=== PATIENT | female | born 1945 | race Caucasian/White ===

== ENCOUNTER 2018-10-03 09:31 | Inpatient (IN) | payer OTHER ==
[~2018-10-03] VITALS: Ht 162.6 cm; Wt 72.5 kg
[~2018-10-03 09:31] MED LIST: BACL10TA; CEPH500C; FENO1TAB PO; GABA300C10 PO; GEMF600T7 PO; IRBE300T18; METO-159; PAR20T; RIVA10TA PO
[2018-10-03 10:24] LABS: Eosinophils # (auto) 0.1 uL; Lymphocytes # (auto) 1.2 uL; Monocytes # (auto) 0.3 uL; Red Cell Distribution Width 18.7 % (11.8-14.3)
[2018-10-03 10:26] LABS: Basophils # (auto) 0.1 uL; Basophils % (auto) 0.8 % (0.0-2.0); Eosinophils % (auto) 1.7 % (0.0-7.0); Hematocrit 35.2 % (36.0-46.0); Lymphocytes % (auto) 13.5 % (10.0-50.0); Mean Corpuscular Hemoglobin 26.4 pg (28.0-32.0); Mean Corpuscular Hgb Conc. 31.2 g/dL (32.0-36.0); Mean Corpuscular Volume 84.4 fL (80.0-100.0); Monocytes % (auto) 3.2 % (0.0-12.0); Neutrophils % (auto) 80.8 % (37.0-80.0); Platelet Count (auto) 203 10^3/uL (140-450); Red Blood Cells 4.17 10^6/uL (4.0-5.20); White Blood Cell 8.7 10^3/uL (4.4-10.8)
[2018-10-03 10:48] LABS: Calcium 9.7 mg/dL (8.5-10.1); Chloride 100 mmol/L (98-107); Sodium 135 mmol/L (136-145)
[2018-10-03 10:56] LABS: Urine WBC None Seen /hpf (0 - 5)
[2018-10-03 10:57] LABS: Alanine Aminotransferase 16 U/L (13-56); Albumin 3.3 g/dL (3.4-5.0); Alkaline Phosphatase 64 U/L (45-117); Anion Gap 9 (5-15); Aspartate Aminotransferase 16 U/L (15-37); BUN/Creatinine Ratio 42.5; Bilirubin, Total 0.3 mg/dL (0.2-1.0); Blood Alcohol < 3.0 mg/dL (0-5); Blood Urea Nitrogen 62 mg/dL (7-18); Carbon Dioxide 26 mmol/L (21-32); GFR African American 45 mL/min; GFR Non-African American 38 mL/min; Glucose 110 mg/dL (74-106); Total Protein 9.8 g/dL (6.4-8.2)
[2018-10-03 11:03] LABS: Potassium 5.7 mmol/L (3.5-5.1)
[2018-10-03 11:16] LABS: Urine Bacteria FEW /hpf (None Seen); Urine Blood Negative /uL (Negative); Urine Hyaline Cast MOD /lpf (0 - 2); Urine Mucus FEW (None Seen); Urine Specific Gravity 1.018 (1.001-1.035)
[2018-10-03 11:21] LABS: Alcohol, Urine < 3.0 mg/dL (0-5); Amphetamine Screen, Urine NEGATIVE (NEGATIVE); Benzodiazephine Screen, Urine NEGATIVE (NEGATIVE); Cannabinoid Screen, Urine NEGATIVE (NEGATIVE); Cocaine Screen, Urine NEGATIVE (NEGATIVE); Opiate Scree,Urine POSITIVE (NEGATIVE); Phencyclidine Screen, Urine NEGATIVE (NEGATIVE)
[2018-10-03 11:28] LABS: Barbiturate Scree,Urine NEGATIVE (NEGATIVE)
[2018-10-03] MEDS ORDERED: FUROSEMIDE 40 MG/4 ML VIAL IV ONE ×2 (12:30→13:45)
[2018-10-03] MEDS ORDERED: SODIUM CHLORIDE 0.9% 1,000 ML IV SCH (13:42)
[2018-10-03] MEDS ORDERED: ACETAMINOPHEN 500 MG TAB PO PRN (13:45)
[2018-10-03] MEDS ORDERED: LACTULOSE 20Gm/30ML SOLN PO PRN (13:45)
[2018-10-03] MEDS ORDERED: SODIUM POLYSTYRENE SULF 15 GM POWDER PO ONE (13:45)
[2018-10-03] MEDS ORDERED: LABETALOL HCL 5 MG/ML ML 20ML VIAL IV PRN (13:45)
[2018-10-03] MEDS ORDERED: SODIUM CHLORIDE 0.9% 2,000 ML IV ONE (13:45)
[2018-10-03] MEDS ORDERED: DEXTROSE (50%) 50ML SYRG IV PRN (13:45)
[2018-10-03] MEDS ORDERED: PROMETHAZINE HCL 25 MG/ML 1ML IV PRN (13:45)
[2018-10-03] MEDS ORDERED: NITROGLYCERIN 0.4 MG SL TAB SL PRN (13:45)
[2018-10-03] MEDS ORDERED: MORPHINE SULFATE 4 MG/ML SYR/VIAL IV PRN ×2 (13:45)
[2018-10-03] MEDS ORDERED: LEVOFLOXACIN 500MG 100 ML IV ONE (14:00)
[2018-10-03] MEDS ORDERED: PATIENTS OWN MEDICATION (Gabapentin 300 MG) PO SCH (14:00)
[2018-10-03] MEDS: GABAPENTIN 300 MG CAP PO SCH (16:00)
[2018-10-03] MEDS: CLINDAMYCIN 600MG IV 50 ML IV SCH ×2 (16:00→23:53)
[2018-10-03] MEDS: SODIUM CHLORIDE 0.9% 1,000 ML IV SCH (16:30)
[2018-10-03] MEDS: InsuLIN REG 1unit/0.01ml Soln (100units/ml) SC SCH ×2 (17:00→22:00)
[2018-10-03] MEDS: ACCU-CHEK COMFORT CURVE STRIP VI SCH ×2 (17:11→22:22)
[2018-10-03 23:00] VITALS: BP 157/81
[2018-10-04] MEDS: GABAPENTIN 300 MG CAP PO SCH ×4 (00:10→20:40)
[2018-10-04] MEDS: SODIUM CHLORIDE 0.9% 1,000 ML IV SCH ×3 (01:55→20:40)
[2018-10-04 02:41] LABS: BUN/Creatinine Ratio 55.4; Calcium 8.8 mg/dL (8.5-10.1); Potassium 3.8 mmol/L (3.5-5.1)
[2018-10-04] MEDS: LORazepam 0.5 MG TAB PO PRN ×2 (02:58→23:49)
[2018-10-04 05:00] VITALS: BP 145/68
[2018-10-04] MEDS: CLINDAMYCIN 600MG IV 50 ML IV SCH ×3 (06:07→20:40)
[2018-10-04] MEDS: ACCU-CHEK COMFORT CURVE STRIP VI SCH ×4 (06:07→20:55)
[2018-10-04] MEDS: InsuLIN REG 1unit/0.01ml Soln (100units/ml) SC SCH ×4 (06:07→20:55)
[2018-10-04] MEDS: BACLOFEN 10 MG TAB PO PRN ×2 (06:51→20:41)
[2018-10-04 08:00] VITALS: BP 125/55
[2018-10-04] MEDS: ASPirin 81 mg TAB PO SCH ×2 (10:00→10:08)
[2018-10-04] MEDS: LEVOFLOXACIN 500MG 100 ML IV SCH (10:07)
[2018-10-04] MEDS: PARoxetine 20 MG TAB PO SCH (10:08)
[2018-10-04] MEDS: PANTOPRAZOLE 40 MG TAB PO SCH (10:08)
[2018-10-04] MEDS: GEMFIBROZIL 600 MG TAB PO SCH (10:08)
[2018-10-04] MEDS: RIVAROXABAN 10 MG TAB PO SCH (10:09)
[2018-10-04 13:00] VITALS: BP 134/67
[2018-10-04 17:00] VITALS: BP 135/75
[2018-10-04] MEDS: HYDROcodone-ACET 5/325MG TAB PO PRN (20:41)
[2018-10-04 22:00] VITALS: BP 146/79
[2018-10-05] MEDS: HYDROcodone-ACET 5/325MG TAB PO PRN ×2 (04:37→19:54)
[2018-10-05 05:10] VITALS: BP 140/74
[2018-10-05] MEDS: InsuLIN REG 1unit/0.01ml Soln (100units/ml) SC SCH ×4 (06:24→21:59)
[2018-10-05] MEDS: GABAPENTIN 300 MG CAP PO SCH ×3 (06:24→21:58)
[2018-10-05] MEDS: CLINDAMYCIN 600MG IV 50 ML IV SCH ×3 (06:24→21:58)
[2018-10-05] MEDS: ACCU-CHEK COMFORT CURVE STRIP VI SCH ×4 (06:25→21:59)
[2018-10-05] MEDS: BACLOFEN 10 MG TAB PO PRN ×2 (06:25→19:54)
[2018-10-05 06:53] LABS: Basophils # (auto) 0 uL; Basophils % (auto) 0.7 % (0.0-2.0); Eosinophils # (auto) 0.2 uL; Eosinophils % (auto) 3.7 % (0.0-7.0); Hematocrit 28.3 % (36.0-46.0); Hemoglobin 9.2 g/dL (12.2-16.2); Lymphocytes # (auto) 0.9 uL; Lymphocytes % (auto) 18.7 % (10.0-50.0); Mean Corpuscular Hemoglobin 27.1 pg (28.0-32.0); Mean Corpuscular Hgb Conc. 32.5 g/dL (32.0-36.0); Mean Corpuscular Volume 83.5 fL (80.0-100.0); Monocytes # (auto) 0.4 uL; Monocytes % (auto) 7.6 % (0.0-12.0); Neutrophils # (auto) 3.5 uL; Neutrophils % (auto) 69.3 % (37.0-80.0); Nucleated Red Blood Cells % 0.1 %; Platelet Count (auto) 171 10^3/uL (140-450); Red Blood Cells 3.39 10^6/uL (4.0-5.20); Red Cell Distribution Width 18.6 % (11.8-14.3)
[2018-10-05 07:18] LABS: Calcium 8.1 mg/dL (8.5-10.1); Magnesium 2.2 mg/dL (1.6-2.6); Potassium 3.1 mmol/L (3.5-5.1)
[2018-10-05 09:00] VITALS: BP 115/68
[2018-10-05] MEDS: ASPirin 81 mg TAB PO SCH (10:00)
[2018-10-05] MEDS: GEMFIBROZIL 600 MG TAB PO SCH (11:11)
[2018-10-05] MEDS: SODIUM CHLORIDE 0.9% 1,000 ML IV SCH ×2 (11:11→16:14)
[2018-10-05] MEDS: LEVOFLOXACIN 500MG 100 ML IV SCH (11:11)
[2018-10-05] MEDS: PARoxetine 20 MG TAB PO SCH (11:12)
[2018-10-05] MEDS: RIVAROXABAN 10 MG TAB PO SCH (11:13)
[2018-10-05] MEDS: PANTOPRAZOLE 40 MG TAB PO SCH (11:13)
[2018-10-05 13:00] VITALS: BP 139/75
[2018-10-05 16:34] VITALS: BP 124/62
[2018-10-05] MEDS ORDERED: POTASSIUM CHL 20 Meq TABLET PO ONE (17:15)
[2018-10-05] MEDS: Pro-Stat SF 30ml Vanilla PO SCH (18:05)
[2018-10-05] MEDS: ASCORBIC ACID 500 MG TAB PO SCH (21:59)
[2018-10-05 22:00] VITALS: BP 146/80
[2018-10-05] MEDS: TEMAZEPAM 15 MG CAP PO PRN (22:00)
[2018-10-06] MEDS: SODIUM CHLORIDE 0.9% 1,000 ML IV SCH ×2 (04:00→14:00)
[2018-10-06 05:00] VITALS: BP 128/69
[2018-10-06 05:58] LABS: Basophils # (auto) 0 uL; Eosinophils # (auto) 0.3 uL; Hemoglobin 9.2 g/dL (12.2-16.2); Mean Corpuscular Hgb Conc. 32.2 g/dL (32.0-36.0); Monocytes # (auto) 0.4 uL
[2018-10-06 06:01] LABS: Basophils % (auto) 0.6 % (0.0-2.0); Hematocrit 28.7 % (36.0-46.0); Lymphocytes % (auto) 19.5 % (10.0-50.0); Mean Corpuscular Hemoglobin 26.7 pg (28.0-32.0); Monocytes % (auto) 8.1 % (0.0-12.0); Neutrophils # (auto) 3.5 uL; Neutrophils % (auto) 66.8 % (37.0-80.0); Platelet Count (auto) 171 10^3/uL (140-450); Red Blood Cells 3.46 10^6/uL (4.0-5.20); Red Cell Distribution Width 18.3 % (11.8-14.3); White Blood Cell 5.3 10^3/uL (4.4-10.8)
[2018-10-06] MEDS: CLINDAMYCIN 600MG IV 50 ML IV SCH ×3 (06:02→22:58)
[2018-10-06] MEDS: TEMAZEPAM 15 MG CAP PO PRN ×2 (06:03→23:00)
[2018-10-06] MEDS: GABAPENTIN 300 MG CAP PO SCH ×3 (06:03→22:59)
[2018-10-06] MEDS: BACLOFEN 10 MG TAB PO PRN (06:03)
[2018-10-06 06:08] LABS: Potassium 3.8 mmol/L (3.5-5.1)
[2018-10-06 06:14] LABS: BUN/Creatinine Ratio 47.9; Calcium 8.6 mg/dL (8.5-10.1); Magnesium 2.2 mg/dL (1.6-2.6); Phosphorus 2.9 mg/dL (2.5-4.90)
[2018-10-06] MEDS: InsuLIN REG 1unit/0.01ml Soln (100units/ml) SC SCH ×4 (06:29→22:00)
[2018-10-06] MEDS: ACCU-CHEK COMFORT CURVE STRIP VI SCH ×4 (06:30→22:59)
[2018-10-06] MEDS: Pro-Stat SF 30ml Vanilla PO SCH ×2 (08:00→18:00)
[2018-10-06 09:04] VITALS: BP 122/64
[2018-10-06] MEDS: LEVOFLOXACIN 500MG 100 ML IV SCH (10:00)
[2018-10-06] MEDS: PARoxetine 20 MG TAB PO SCH (10:46)
[2018-10-06] MEDS: MULTIPLE VITAMINS W/ MINERALS TAB PO SCH (10:46)
[2018-10-06] MEDS: ASCORBIC ACID 500 MG TAB PO SCH ×2 (10:47→22:59)
[2018-10-06] MEDS: ASPirin 81 mg TAB PO SCH (10:47)
[2018-10-06] MEDS: GEMFIBROZIL 600 MG TAB PO SCH (10:47)
[2018-10-06] MEDS: RIVAROXABAN 10 MG TAB PO SCH (10:48)
[2018-10-06] MEDS: PANTOPRAZOLE 40 MG TAB PO SCH (10:48)
[2018-10-06 12:44] VITALS: BP 140/75
[2018-10-06 16:44] VITALS: BP 132/70
[2018-10-06 20:00] VITALS: BP 147/75
[2018-10-06] MEDS: HYDROcodone-ACET 5/325MG TAB PO PRN (20:48)
[2018-10-06 21:55] VITALS: BP 147/75
[2018-10-07 05:30] VITALS: BP 131/68
[2018-10-07] MEDS: GABAPENTIN 300 MG CAP PO SCH ×3 (05:46→22:47)
[2018-10-07] MEDS: CLINDAMYCIN 600MG IV 50 ML IV SCH (05:46)
[2018-10-07] MEDS: ACCU-CHEK COMFORT CURVE STRIP VI SCH ×4 (06:29→22:00)
[2018-10-07] MEDS: InsuLIN REG 1unit/0.01ml Soln (100units/ml) SC SCH ×4 (06:29→22:00)
[2018-10-07] MEDS: Pro-Stat SF 30ml Vanilla PO SCH ×2 (08:00→18:00)
[2018-10-07 08:30] VITALS: BP 133/67
[2018-10-07] MEDS: GEMFIBROZIL 600 MG TAB PO SCH (10:00)
[2018-10-07] MEDS ORDERED: METOPROLOL TARTRATE 50 MG TAB PO SCH (10:00)
[2018-10-07] MEDS: LEVOFLOXACIN 500MG 100 ML IV SCH (10:00)
[2018-10-07] MEDS: ASPirin 81 mg TAB PO SCH (10:00)
[2018-10-07] MEDS: SODIUM CHLORIDE 0.9% 1,000 ML IV SCH ×3 (10:00→20:00)
[2018-10-07] MEDS: RIVAROXABAN 10 MG TAB PO SCH (10:42)
[2018-10-07] MEDS: METOPROLOL SUCCINATE XL 50 MG TAB PO SCH (10:43)
[2018-10-07] MEDS: MULTIPLE VITAMINS W/ MINERALS TAB PO SCH (10:44)
[2018-10-07] MEDS: PARoxetine 20 MG TAB PO SCH (10:44)
[2018-10-07] MEDS: PANTOPRAZOLE 40 MG TAB PO SCH (10:44)
[2018-10-07] MEDS: ASCORBIC ACID 500 MG TAB PO SCH ×2 (10:44→22:48)
[2018-10-07] MEDS: CEFTRIAXONE SODIUM 2 GM in D5W 5% 50 ML IV SCH (11:30)
[2018-10-07] MEDS: AMPICILLIN INJ 500 MG in SODIUM CHL 0.9% 50 ML IV SCH ×2 (12:00→18:00)
[2018-10-07 12:25] LABS: INR 1.23 (0.9-1.15)
[2018-10-07 12:32] VITALS: BP 139/71
[2018-10-07 17:00] VITALS: BP 153/74
[2018-10-07 20:00] VITALS: BP 164/97
[2018-10-07 22:00] VITALS: BP 164/97
[2018-10-07] MEDS: TEMAZEPAM 15 MG CAP PO PRN (22:51)
[2018-10-08 05:27] VITALS: BP 145/72
[2018-10-08 05:37] LABS: Basophils # (auto) 0 uL; Basophils % (auto) 0.5 % (0.0-2.0); Eosinophils # (auto) 0.2 uL; Lymphocytes # (auto) 1.2 uL; Mean Corpuscular Hgb Conc. 32.1 g/dL (32.0-36.0)
[2018-10-08 05:39] LABS: Eosinophils % (auto) 3.9 % (0.0-7.0); Hematocrit 30.2 % (36.0-46.0); Hemoglobin 9.7 g/dL (12.2-16.2); Lymphocytes % (auto) 19.7 % (10.0-50.0); Mean Corpuscular Hemoglobin 26.4 pg (28.0-32.0); Mean Corpuscular Volume 82.3 fL (80.0-100.0); Monocytes # (auto) 0.6 uL; Monocytes % (auto) 9.4 % (0.0-12.0); Neutrophils % (auto) 66.5 % (37.0-80.0); Nucleated Red Blood Cells % 0.1 %; Platelet Count (auto) 165 10^3/uL (140-450); Red Blood Cells 3.67 10^6/uL (4.0-5.20); Red Cell Distribution Width 18.3 % (11.8-14.3); White Blood Cell 6.1 10^3/uL (4.4-10.8)
[2018-10-08] MEDS: AMPICILLIN INJ 500 MG in SODIUM CHL 0.9% 50 ML IV SCH ×6 (06:00→23:23)
[2018-10-08] MEDS: HYDROcodone-ACET 5/325MG TAB PO PRN ×3 (06:00→21:24)
[2018-10-08] MEDS: SODIUM CHLORIDE 0.9% 1,000 ML IV SCH ×2 (06:00→16:18)
[2018-10-08] MEDS: GABAPENTIN 300 MG CAP PO SCH ×3 (06:00→21:22)
[2018-10-08 06:03] LABS: Chloride 108 mmol/L (98-107); Sodium 141 mmol/L (136-145)
[2018-10-08 06:08] LABS: Anion Gap 9 (5-15); BUN/Creatinine Ratio 31.9; Blood Urea Nitrogen 15 mg/dL (7-18); Calcium 8.7 mg/dL (8.5-10.1); Carbon Dioxide 24 mmol/L (21-32); GFR African American 168 mL/min; GFR Non-African American 139 mL/min; Glucose 101 mg/dL (74-106); Magnesium 1.8 mg/dL (1.6-2.6)
[2018-10-08] MEDS: InsuLIN REG 1unit/0.01ml Soln (100units/ml) SC SCH ×4 (07:00→21:22)
[2018-10-08] MEDS: ACCU-CHEK COMFORT CURVE STRIP VI SCH ×4 (07:00→21:22)
[2018-10-08] MEDS: Pro-Stat SF 30ml Vanilla PO SCH ×2 (08:00→18:00)
[2018-10-08 08:39] VITALS: BP 159/77
[2018-10-08] MEDS ORDERED: ceFAZolin 1GM/50ML 50 ML IV ONE (09:53)
[2018-10-08] MEDS: CEFTRIAXONE SODIUM 2 GM in D5W 5% 50 ML IV SCH (10:00)
[2018-10-08] MEDS: GEMFIBROZIL 600 MG TAB PO SCH (10:00)
[2018-10-08] MEDS: ASCORBIC ACID 500 MG TAB PO SCH ×2 (10:00→21:22)
[2018-10-08] MEDS ORDERED: ceFAZolin 1GM VL ONE (10:56)
[2018-10-08] MEDS ORDERED: BUPIVACAINE 0.75% INJ 10ML MPV SDV IJ ONE (11:35)
[2018-10-08] MEDS ORDERED: MIDAZOLAM HCL 1MG/1ML-2 ML VIAL ONE (11:36)
[2018-10-08] MEDS ORDERED: fentaNYL CITRATE 100 MCG/2 ML VL ONE (11:36)
[2018-10-08] MEDS ORDERED: DEXAMETHASONE SOD PHOS 10MG/1ML VIAL INJ ONE (11:44)
[2018-10-08] MEDS ORDERED: PROPOFOL 10 MG/ML 20 ML IV ONE (11:54)
[2018-10-08 13:00] VITALS: BP 141/71
[2018-10-08] MEDS: PANTOPRAZOLE 40 MG TAB PO SCH (13:45)
[2018-10-08] MEDS: ASPirin 81 mg TAB PO SCH (13:46)
[2018-10-08] MEDS: MULTIPLE VITAMINS W/ MINERALS TAB PO SCH (13:46)
[2018-10-08] MEDS: PARoxetine 20 MG TAB PO SCH (13:46)
[2018-10-08] MEDS: METOPROLOL SUCCINATE XL 50 MG TAB PO SCH (13:47)
[2018-10-08] MEDS: RIVAROXABAN 10 MG TAB PO SCH (14:03)
[2018-10-08] MEDS ORDERED: LIDOCAINE 1% (LOCAL ANESTH.) PF 5ml SDV ID ONE (16:15)
[2018-10-08 17:23] VITALS: BP 159/85
[2018-10-08 20:00] VITALS: BP 134/69
[2018-10-08] MEDS: SODIUM CHLOR 0.9% PF (SALINE LOCK) 10ML VIAL/SYR IV SCH (21:22)
[2018-10-08 22:05] VITALS: BP 116/72
[2018-10-09] MEDS: SODIUM CHLORIDE 0.9% 1,000 ML IV SCH (02:02)
[2018-10-09 04:52] VITALS: BP 139/70
[2018-10-09] MEDS: AMPICILLIN INJ 500 MG in SODIUM CHL 0.9% 50 ML IV SCH (05:52)
[2018-10-09] MEDS: ACCU-CHEK COMFORT CURVE STRIP VI SCH ×2 (05:52→11:30)
[2018-10-09] MEDS: GABAPENTIN 300 MG CAP PO SCH (05:52)
[2018-10-09] MEDS: InsuLIN REG 1unit/0.01ml Soln (100units/ml) SC SCH ×2 (05:52→11:30)
[2018-10-09] MEDS: HYDROcodone-ACET 5/325MG TAB PO PRN (06:15)
[2018-10-09 09:00] VITALS: BP 147/78
[2018-10-09] MEDS: PARoxetine 20 MG TAB PO SCH (11:14)
[2018-10-09] MEDS: ASCORBIC ACID 500 MG TAB PO SCH (11:14)
[2018-10-09] MEDS: METOPROLOL SUCCINATE XL 50 MG TAB PO SCH (11:15)
[2018-10-09] MEDS: ASPirin 81 mg TAB PO SCH (11:15)
[2018-10-09] MEDS: PANTOPRAZOLE 40 MG TAB PO SCH (11:16)
[2018-10-09] MEDS: GEMFIBROZIL 600 MG TAB PO SCH (11:16)
[2018-10-09] MEDS: MULTIPLE VITAMINS W/ MINERALS TAB PO SCH (11:16)
[2018-10-09] MEDS: CEFTRIAXONE SODIUM 2 GM in D5W 5% 50 ML IV SCH (11:17)
[2018-10-09] MEDS: RIVAROXABAN 10 MG TAB PO SCH (11:18)
[2018-10-09] MEDS: SODIUM CHLOR 0.9% PF (SALINE LOCK) 10ML VIAL/SYR IV SCH (11:18)
[2018-10-09] MEDS ORDERED: AMPICILLIN SOD 1 GM in SODIUM CHL 0.9% 50 ML IV SCH (12:00)
[2018-10-09 12:34] VITALS: BP 147/78
[2018-10-09 13:04] VITALS: BP 143/70
[2018-10-09 17:09] VITALS: BP 157/81
== END 2018-10-09 16:08 | disposition home health service (06) | DRG 628 ==
LOC: ER 09:31 → EDBD 09:31 → TELE 13:38 → TELE-WESTW 22:48
PROVIDERS: ADMIT Internal Medicine; ATTEND Internal Medicine
PROC: 0QBL0ZZ Excision of Right Tarsal, Open Approach (ICD-10-PCS; 2018-10-08)
PROC: 02HV33Z Insertion of Infusion Device into Superior Vena Cava, Percutaneous Approach (ICD-10-PCS; principal; 2018-10-08 11:25)
DX: E11.69 Type 2 diabetes mellitus with other specified complication (principal); G93.41 Metabolic encephalopathy; L89.154 Pressure ulcer of sacral region, stage 4; M46.28 Osteomyelitis of vertebra, sacral and sacrococcygeal region; L97.419 Non-pressure chronic ulcer of right heel and midfoot with unspecified severity; M86.652 Other chronic osteomyelitis, left thigh; M86.8X7 Other osteomyelitis, ankle and foot; N17.9 Acute kidney failure, unspecified; E87.5 Hyperkalemia; E86.0 Dehydration; G62.9 Polyneuropathy, unspecified; F32.9 Major depressive disorder, single episode, unspecified; E66.9 Obesity, unspecified; E78.5 Hyperlipidemia, unspecified; E11.42 Type 2 diabetes mellitus with diabetic polyneuropathy; E11.21 Type 2 diabetes mellitus with diabetic nephropathy; E11.51 Type 2 diabetes mellitus with diabetic peripheral angiopathy without gangrene; E11.621 Type 2 diabetes mellitus with foot ulcer; L89.95 Pressure ulcer of unspecified site, unstageable; I10 Essential (primary) hypertension; R29.810 Facial weakness; Z79.01 Long term (current) use of anticoagulants; Z81.8 Family history of other mental and behavioral disorders; Z82.3 Family history of stroke; Z82.49 Family history of ischemic heart disease and other diseases of the circulatory system; Z86.73 Personal history of transient ischemic attack (TIA), and cerebral infarction without residual deficits; Z79.899 Other long term (current) drug therapy; Z88.8 Allergy status to other drugs, medicaments and biological substances; Z68.27 Body mass index [BMI] 27.0-27.9, adult
CPT/HCPCS: 36415; 36569; 70450; 71045; 73700; 80048; 80053; 80307; 80320; 81001; 82550; 82962; 83036; 83735; 84100; 84443; 84484; 85025; 85610; 87070; 87075; 87077; 87186; 87205; 93005; 93925; 95819; 96361; 96365; A6257; G0378; J0690; J0696; J1100; J1956; J2250; J2704; J3490; J7060

== ENCOUNTER 2018-11-08 11:12 | Inpatient (IN) | payer MEDICARE, OTHER ==
[~2018-11-08] VITALS: Ht 152.4 cm; Wt 68.0 kg
[~2018-11-08 11:12] MED LIST changes: -CEPH500C
[2018-11-08] MEDS ORDERED: SODIUM CHLORIDE 0.9% 1,000 ML IV ONE (13:21)
[2018-11-08 14:25] LABS: Basophils # (auto) 0.1 uL; Basophils % (auto) 0.7 % (0.0-2.0); Eosinophils # (auto) 0.2 uL; Eosinophils % (auto) 2.8 % (0.0-7.0); Hematocrit 34.5 % (36.0-46.0); Hemoglobin 10.8 g/dL (12.2-16.2); Lymphocytes # (auto) 1.4 uL; Lymphocytes % (auto) 18.8 % (10.0-50.0); Mean Corpuscular Hgb Conc. 31.3 g/dL (32.0-36.0); Mean Corpuscular Volume 86.2 fL (80.0-100.0); Monocytes # (auto) 0.4 uL; Monocytes % (auto) 4.6 % (0.0-12.0); Neutrophils # (auto) 5.6 uL; Neutrophils % (auto) 73.1 % (37.0-80.0); Platelet Count (auto) 235 10^3/uL (140-450); Red Cell Distribution Width 19.9 % (11.8-14.3); White Blood Cell 7.7 10^3/uL (4.4-10.8)
[2018-11-08 14:47] LABS: INR 1.1 (0.9-1.15); Partial Thromboplastin Time 37.1 sec (23.78-33.04); Prothrombin Time 11.7 sec (9.27-12.13)
[2018-11-08 14:48] LABS: Albumin 3.4 g/dL (3.4-5.0); Anion Gap 7 (5-15); Blood Urea Nitrogen 20 mg/dL (7-18); Calcium 9.3 mg/dL (8.5-10.1); Carbon Dioxide 27 mmol/L (21-32); Chloride 103 mmol/L (98-107); Glucose 111 mg/dL (74-106); Potassium 3.8 mmol/L (3.5-5.1); Sodium 137 mmol/L (136-145)
[2018-11-08 14:50] LABS: Alanine Aminotransferase 15 U/L (13-56); Aspartate Aminotransferase 14 U/L (15-37); BUN/Creatinine Ratio 30.8; GFR African American 116 mL/min; GFR Non-African American 96 mL/min
[2018-11-08 14:55] LABS: Alkaline Phosphatase 70 U/L (45-117); Bilirubin, Total 0.3 mg/dL (0.2-1.0); Total Protein 9.3 g/dL (6.4-8.2)
[2018-11-08] MEDS ORDERED: PIPERACILLIN-TAZOB 3.375GM 100 ML IV ONE (15:15)
[2018-11-08] MEDS ORDERED: VANCOMYCIN PER PHARMACY 0 MG IV SCH (19:30)
[2018-11-08] MEDS ORDERED: ACETAMINOPHEN 500 MG TAB PO PRN (19:30)
[2018-11-08] MEDS ORDERED: ONDANSETRON HCL 4 MG/2 ML VIAL IV PRN (19:30)
[2018-11-08] MEDS ORDERED: VANCOMYCIN 1GM/250ML 250 ML IV ONE (20:00)
[2018-11-08 22:00] VITALS: BP 157/94
[2018-11-08] MEDS: metroNIDAZOLE 500MG/100ML 100 ML IV SCH (22:46)
[2018-11-08] MEDS: METOPROLOL TARTRATE 50 MG TAB PO SCH (22:47)
[2018-11-08] MEDS: GABAPENTIN 300 MG CAP PO SCH (22:49)
[2018-11-09] MEDS: HYDROcodone-ACET 5/325MG TAB PO PRN ×3 (00:06→17:51)
[2018-11-09] MEDS: PIPERACILLIN-TAZOB 3.375GM 100 ML IV SCH ×4 (00:42→17:49)
[2018-11-09 05:00] VITALS: BP 139/67
[2018-11-09] MEDS: metroNIDAZOLE 500MG/100ML 100 ML IV SCH ×2 (05:38→14:00)
[2018-11-09] MEDS: GABAPENTIN 300 MG CAP PO SCH ×2 (05:39→14:00)
[2018-11-09 07:45] VITALS: BP 159/72
[2018-11-09 08:48] LABS: Basophils # (auto) 0 uL; Eosinophils # (auto) 0.2 uL; Mean Corpuscular Volume 84.7 fL (80.0-100.0); Neutrophils # (auto) 5.3 uL
[2018-11-09 08:49] LABS: Basophils % (auto) 0.5 % (0.0-2.0); Eosinophils % (auto) 2.4 % (0.0-7.0); Hematocrit 30.9 % (36.0-46.0); Hemoglobin 9.8 g/dL (12.2-16.2); Lymphocytes # (auto) 1.1 uL; Lymphocytes % (auto) 16.1 % (10.0-50.0); Mean Corpuscular Hemoglobin 26.9 pg (28.0-32.0); Mean Corpuscular Hgb Conc. 31.7 g/dL (32.0-36.0); Monocytes # (auto) 0.4 uL; Monocytes % (auto) 5.9 % (0.0-12.0); Neutrophils % (auto) 75.1 % (37.0-80.0); Platelet Count (auto) 186 10^3/uL (140-450); Red Blood Cells 3.64 10^6/uL (4.0-5.20); Red Cell Distribution Width 19.2 % (11.8-14.3)
[2018-11-09] MEDS ORDERED: VANCOMYCIN 750 MG in D5W 5% 250 ML IV SCH (09:00)
[2018-11-09 09:01] LABS: BUN/Creatinine Ratio 31.8; Calcium 8.4 mg/dL (8.5-10.1); Potassium 3.9 mmol/L (3.5-5.1)
[2018-11-09] MEDS: METOPROLOL TARTRATE 50 MG TAB PO SCH (10:00)
[2018-11-09] MEDS ORDERED: RIVAROXABAN 10 MG TAB PO SCH (10:00)
[2018-11-09 13:00] VITALS: BP 145/72
[2018-11-09 16:39] VITALS: BP 138/71
[2018-11-09] MEDS ORDERED: LIDOCAINE 1% (LOCAL ANESTH.) PF 5ml SDV ID ONE (17:15)
[2018-11-09] MEDS ORDERED: SODIUM CHLOR 0.9% PF (SALINE LOCK) 10ML VIAL/SYR IV SCH (22:00)
== END 2018-11-09 18:00 | disposition home or self-care (01) | DRG 315 ==
LOC: ER 11:12 → OVERFLOW 19:28 → EAST 20:45
PROVIDERS: ADMIT Nurse Practitioner Family; ATTEND Internal Medicine
PROC: 02HV33Z Insertion of Infusion Device into Superior Vena Cava, Percutaneous Approach (ICD-10-PCS; principal; 2018-11-09)
DX: T82.514A Breakdown (mechanical) of infusion catheter, initial encounter (principal); L03.116 Cellulitis of left lower limb; M86.68 Other chronic osteomyelitis, other site; D64.9 Anemia, unspecified; E11.51 Type 2 diabetes mellitus with diabetic peripheral angiopathy without gangrene; I10 Essential (primary) hypertension; L89.229 Pressure ulcer of left hip, unspecified stage; L89.95 Pressure ulcer of unspecified site, unstageable; E11.69 Type 2 diabetes mellitus with other specified complication; F32.9 Major depressive disorder, single episode, unspecified; Y84.8 Other medical procedures as the cause of abnormal reaction of the patient, or of later complication, without mention of misadventure at the time of the procedure; Y71.2 Prosthetic and other implants, materials and accessory cardiovascular devices associated with adverse incidents; Z79.01 Long term (current) use of anticoagulants; Y92.89 Other specified places as the place of occurrence of the external cause; Z81.8 Family history of other mental and behavioral disorders; Z82.3 Family history of stroke; Z82.49 Family history of ischemic heart disease and other diseases of the circulatory system; Z86.73 Personal history of transient ischemic attack (TIA), and cerebral infarction without residual deficits
CPT/HCPCS: 36415; 36569; 71045; 80048; 80053; 83880; 84484; 85025; 85610; 85730; 87040; 87081; 87493; 93970; 96360; G0378; J2543; J3490; J7060

== ENCOUNTER 2019-04-01 19:32 | Inpatient (IN) | payer OTHER ==
[~2019-04-01] VITALS: Ht 160 cm; Wt 90.6 kg
[2019-04-01 21:10] LABS: Basophils # (auto) 0 uL; Basophils % (auto) 0.6 % (0.0-2.0); Eosinophils # (auto) 0.2 uL; Eosinophils % (auto) 3.2 % (0.0-7.0); Hematocrit 40.8 % (36.0-46.0); Hemoglobin 13.4 g/dL (12.2-16.2); Lymphocytes # (auto) 0.8 uL; Lymphocytes % (auto) 10.7 % (10.0-50.0); Mean Corpuscular Hemoglobin 27.6 pg (28.0-32.0); Mean Corpuscular Hgb Conc. 32.8 g/dL (32.0-36.0); Mean Corpuscular Volume 84.3 fL (80.0-100.0); Monocytes # (auto) 0.3 uL; Monocytes % (auto) 4.6 % (0.0-12.0); Neutrophils # (auto) 6.1 uL; Neutrophils % (auto) 80.9 % (37.0-80.0); Nucleated Red Blood Cells % 0.2 %; Platelet Count (auto) 195 10^3/uL (140-450); Red Blood Cells 4.84 10^6/uL (4.0-5.20); Red Cell Distribution Width 19.1 % (11.8-14.3); White Blood Cell 7.6 10^3/uL (4.4-10.8)
[2019-04-01 21:35] LABS: Albumin 3.3 g/dL (3.4-5.0); Calcium 9.3 mg/dL (8.5-10.1); Potassium 5.1 mmol/L (3.5-5.1)
[2019-04-01 21:37] LABS: BUN/Creatinine Ratio 45.2; Bilirubin, Total 0.3 mg/dL (0.2-1.0); Total Protein 9.5 g/dL (6.4-8.2)
[2019-04-01] MEDS ORDERED: ONDANSETRON HCL 4 MG/2 ML VIAL IV ONE (22:15)
[2019-04-01 23:24] LABS: Magnesium 2.2 mg/dL (1.6-2.6)
[2019-04-01 23:25] LABS: INR 1.26 (0.9-1.15); Partial Thromboplastin Time 44.1 sec (23.78-33.04); Prothrombin Time 13.3 sec (9.27-12.13)
[2019-04-02] VITALS (7 sets, daily range): BP systolic 130–162; BP diastolic 59–72
[2019-04-02] MEDS ORDERED: TEMAZEPAM 15 MG CAP PO PRN (02:15)
[2019-04-02] MEDS ORDERED: ACETAMINOPHEN 325 MG TAB PO PRN (02:15)
[2019-04-02] MEDS ORDERED: VANCOMYCIN PER PHARMACY 0 MG IV SCH (03:00)
[2019-04-02] MEDS ORDERED: VANCOMYCIN 1GM/250ML 250 ML IV ONE (03:30)
--- NOTE | 2019-04-02 04:30 | NUR ---
ADMITTED PATIENT FROM THE ER, AAOX4. INTRODUCED MYSELF PRIMARY NURSE. NO DISTRESS NOTED. AFEBRILE. COMPLAINED OF BOTH LEG PAIN. WILL MEDICATE PATIENT. WILL TURN PATIENT EVERY TWO HOURS. PATIENT IS CONTRACTED ON BLE AND BUE. ABLE TO USE BOTH UPPER EXTREMITIES WITH ASSIST. PATIENT IS A FEEDER. WILL TURN PATIENT EVERY TWO HOURS. NO SOB NOTED. PATIENT HAS BKE DRESSING WHICH IS ALL CLEAN, DRY AND INTACT. ACCORDING TO PATIENT, ER CHANGED THE DRESSING AND TOOK PICTURES OF THE WOUND AFTER ASKING HER SEVERAL TIMES. SPARKLE HUNTLEY WITNESSED. ADVISED PATIENT CONSULTS TO CURATORIAL SPECIALIST AND WOUND CARE NURSE. ROUTINE ADMISSION DONE. POCS DISCUSSED WITH PATIENT AND SHOWED UNDERSTANDING. BED KEPT ON LOWEST POSITION. SIDE RAILS UP. CALL LIGHT/TABLE IN REACH. ON CONTACT ISOLATION. WILL FOLLOW UP CARE.
[2019-04-02] MEDS: HYDROcodone-ACET 5/325MG TAB PO PRN ×3 (05:03→22:03)
[2019-04-02] MEDS ORDERED: CLINDAMYCIN 600MG IV 50 ML IV SCH (06:00)
[2019-04-02] MEDS ORDERED: metroNIDAZOLE 500MG/100ML 100 ML IV SCH (06:00)
--- NOTE | 2019-04-02 06:51 | NUR ---
ON BED, AWAKE. REPOSITIONED PATIENT. NO DISTRESS NOTED. FOR MORE CARE AND MANAGEMENT.
[2019-04-02 06:56] LABS: Basophils # (auto) 0 uL; Basophils % (auto) 0.5 % (0.0-2.0); Eosinophils # (auto) 0.2 uL; Eosinophils % (auto) 3.7 % (0.0-7.0); Hematocrit 33.3 % (36.0-46.0); Hemoglobin 10.8 g/dL (12.2-16.2); Lymphocytes % (auto) 16.4 % (10.0-50.0); Mean Corpuscular Hemoglobin 27.5 pg (28.0-32.0); Mean Corpuscular Hgb Conc. 32.4 g/dL (32.0-36.0); Mean Corpuscular Volume 84.8 fL (80.0-100.0); Monocytes # (auto) 0.4 uL; Monocytes % (auto) 7.2 % (0.0-12.0); Neutrophils # (auto) 4.4 uL; Neutrophils % (auto) 72.2 % (37.0-80.0); Platelet Count (auto) 173 10^3/uL (140-450); Red Blood Cells 3.92 10^6/uL (4.0-5.20); Red Cell Distribution Width 18.9 % (11.8-14.3); White Blood Cell 6.1 10^3/uL (4.4-10.8)
[2019-04-02 07:25] LABS: BUN/Creatinine Ratio 53.5; Calcium 8.8 mg/dL (8.5-10.1); Potassium 4.2 mmol/L (3.5-5.1)
--- NOTE | 2019-04-02 08:00 | NUR ---
RECEIVED PATIENT ALERT AND ORIENTED X4, NOT IN DISTRESS, CLEAR LS IN BILATERAL UPPER AND DIMINISHED IN LOWER LUNG LOBES, RR=18 SAT=98%, DENIED SOB AND CHEST PAIN, ABDOMEN SOFT WITH ACTIVE, NO BM NOTED THIS MORNING, SACRUM COVERED WITH PROTECTIVE DRY AND INTACT OPTIFOAM DRESSING, LT. HAND CONTRACTED, BILATERAL LEGS CONTRACTED WITH WOUNDS COVERED WITH DRY AND INTACT DRESSING, PEDAL PULSES PALPABLE RADIAL AND PEDAL PULSES, KEEP SKIN CLEAN AND DRY, POSITION CHANGE Q 2 HOURS, BODY SUPPORTED WITH PILLOWS FOR COMFORT POSITION, HEAD OF BED ELEVATED, BED ON LOW POSITION, RAILS UP X2, CALL LIGHT ON REACH, PAIN L=4/10, PENDING WOUND AND PODIATRY CONSULT, WILL CONTINUE MONITORING.
[2019-04-02] MEDS: FAMOTIDINE 20 MG TAB PO SCH ×2 (10:57→21:49)
[2019-04-02] MEDS: cefTRIAXone 1GM/50ML D5W 50 ML IV SCH (10:57)
[2019-04-02] MEDS: METOPROLOL TARTRATE 50 MG TAB PO SCH (10:58)
[2019-04-02] MEDS ORDERED: METOPROLOL TARTRATE 25 MG TAB PO SCH (12:00)
--- NOTE | 2019-04-02 12:00 | NUR ---
NOT IN DISTRESS, SKIN KEEP CLEAN AND DRY, POSTIN CHANGE Q 2 HOURS, RESTING ON BED, WILL CONTINUE MONITORING.
[2019-04-02] MEDS ORDERED: POLYETHYLENE GLYCOL 17 GM PWDR PO PRN (12:15)
--- NOTE | 2019-04-02 13:15 | NUR ---
WOUND CARE NOTE: Wound care in to see patient per wound care request regarding multiple wounds that are noted present on admission. Jason nurse took photograph of patient's multiple wounds upon admission for reference. Patient is 73 years old female with admitting diagnosis of Bilateral leg wounds. Patient is resting in bed in Rm. 231A. Patient is awake, alert and oriented. Patient is contracted and she needs assistance in turning and repositioning. Her current Angelo score is 10. Patient is in no stated pain at this time however mild pain noted upon turning. Skin/wound assessment done with the assistance of another nurse, AUGUST Kline. Patient noted with multiple open full thickness wounds to BLE with no measurable depth. Her Rt anterior arcos wound measuring (7x6cm); Rt lateral arcos wound (10x3cm), Rt heel (6x10cm) with granulation tissue and black eschar; Lt anterior arcos wound (5x4cm) L lateral arcos (7x1.5cm) Multiple BLE wounds are red with granulation tissue notes, bright and dark red robyn wound, minimal serosanguineous drainage, no odor noted. Cleansed multiple BLE wounds with wound cleanser, patted dry with gauze, applied Thera honey gauze, covered with abd pads, wrapped with Kerlix and secured with tape. 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 Intact scars also noted to her lower sacral/buttocks area. 2x1cm Dry eschar wound noted to her L lateral hip. Patient is receiving BID/PRN cleaning and application of Z Guard cream to sacrum and L hip. Patient tolerated well. care tech at bedside. RECOMMENDATION: BID/PRN cleaning and application of Z Guard cream to sacral, buttocks and L hip wounds; EOD/PRN dressing change to BLE wounds per MD order, Dietary consult due to presence of wounds, podiatry consult, frequent turning and repositioning schedule as condition permits, redistribute pressure points with pillows, elevate heels on pillows, air mattress (ordered), continue monitoring by wound care while patient is hospitalized. Addendum: 04/02/19 at 1843 by Jane Sheffield RN Amended: Links added.
--- NOTE | 2019-04-02 14:00 | NUR ---
WOUND DRSSING WAS CHANGED BY THE WOUND CARE NURSE, TOLERATED WELL, RESTING ON BED, WATCHING TV.
--- NOTE | 2019-04-02 14:06 | NUR ---
faxed HH order to [facility]
--- NOTE | 2019-04-02 14:33 | NUR ---
Pt on service with [facility]. JEFFY Spann with [facility] reviewing order for resumption of HH
[2019-04-02] MEDS: GABAPENTIN 300 MG CAP PO SCH ×2 (16:34→21:49)
[2019-04-02] MEDS: ONDANSETRON HCL 4 MG/2 ML VIAL IV PRN (16:35)
[2019-04-02] MEDS: MORPHINE SULF INJ 2 MG/ML SYRINGE 1ML IV PRN (16:35)
--- NOTE | 2019-04-02 19:40 | NUR ---
NOT IN DISTRESS, DENIED PAIN, REPORT WAS GIVEN TO THE RESIDENCY COORDINATOR RN.
--- NOTE | 2019-04-02 19:49 | NUR ---
OPENING NOTES RECEIVED REPORT FROM DAY SHIFT NURSE. PT IS A/OX4 WITH NO S/S OF DISTRESS NOR PAIN. NO S/S OF SOB WHILE ON 2L OF O2 VIA N/C. BED BRAKES ARE LOCKED AND HOB IS 30 DEGREES. SIDE RAILS ARE UP X 2 AND CALL LIGHT IS WITH IN REACH. BED IS IN LOWEST POSITION. DISCUSSED POC WITH PT AND PT VERBALIZED UNDERSTANDING. WILL CONTINUE TO MONITOR Q 1 HR.
[2019-04-02] MEDS: DOCUSATE SOD 100 MG CAP PO SCH (21:49)
[2019-04-02] MEDS: VANCOMYCIN 1GM/250ML 250 ML IV SCH (23:05)
--- NOTE | 2019-04-03 00:38 | NUR ---
IV insertion IV access obtained, via clean sterile technique by inserting 20 gauge catheter at left forearm after 2 attempts. IV secured properly. No trauma to site. Patient tolerated well.
[2019-04-03 04:57] VITALS: BP 126/53
[2019-04-03] MEDS: GABAPENTIN 300 MG CAP PO SCH ×3 (05:35→21:51)
[2019-04-03 06:16] LABS: Basophils # (auto) 0 uL; Basophils % (auto) 0.9 % (0.0-2.0); Eosinophils # (auto) 0.2 uL; Eosinophils % (auto) 4.2 % (0.0-7.0); Hematocrit 32.3 % (36.0-46.0); Hemoglobin 10.6 g/dL (12.2-16.2); Lymphocytes # (auto) 1.1 uL; Lymphocytes % (auto) 23.7 % (10.0-50.0); Mean Corpuscular Volume 84.9 fL (80.0-100.0); Monocytes # (auto) 0.4 uL; Neutrophils # (auto) 2.9 uL; Neutrophils % (auto) 63.2 % (37.0-80.0); Platelet Count (auto) 143 10^3/uL (140-450); Red Cell Distribution Width 18.3 % (11.8-14.3); White Blood Cell 4.6 10^3/uL (4.4-10.8)
[2019-04-03 06:28] LABS: INR 1.17 (0.9-1.15); Partial Thromboplastin Time 34.9 sec (23.78-33.04); Prothrombin Time 12.4 sec (9.27-12.13)
[2019-04-03 06:31] LABS: BUN/Creatinine Ratio 48.5
--- NOTE | 2019-04-03 07:36 | NUR ---
ENDORSED CARE TO DAY SHIFT NURSE
--- NOTE | 2019-04-03 07:53 | NUR ---
RECEIVED PATIENT ALERT AND ORIENTED X4, ON SEIZURE PRECAUTION, NOT IN DISTRESS, CLEAR LS IN BILATERAL UPPER AND DIMINISHED IN LOWER LUNG LOBES, RR=18 SAT=97%, DEEP BREATHING AND COUGHING ENCOURAGED, DEMONSTRATED WELL AND VERBALIZED UNDERSTANDING, DENIED SOB AND CHEST PAIN, ABDOMEN SOFT WITH ACTIVE, LAST BM 03/31/19 REPORTED, BILATERAL LOWER EXTREMITIES WOUNDS COVERED WITH DRY AND INTACT DRESSING, RADIAL AND PEDAL PULSES PALPABLE, KEEP SKIN CLEAN AND DRY, POSITION CHANGE Q 2 HOURS, BODY SUPPORTED WITH PILLOWS FOR COMFORT POSITION, HEAD OF BED ELEVATED, BED ON LOW POSITION, RAILS UP X2, CALL LIGHT ON REACH, PAIN L=310, PENDING SS CONSULT , WILL CONTINUE MONITORING.
[2019-04-03 09:00] VITALS: BP 137/58
[2019-04-03] MEDS ORDERED: RIVAROXABAN 10 MG TAB PO SCH (10:00)
[2019-04-03] MEDS: DOCUSATE SOD 100 MG CAP PO SCH ×2 (10:47→21:51)
[2019-04-03] MEDS: cefTRIAXone 1GM/50ML D5W 50 ML IV SCH (10:47)
[2019-04-03] MEDS: GEMFIBROZIL 600 MG TAB PO SCH (10:47)
[2019-04-03] MEDS: METOPROLOL TARTRATE 50 MG TAB PO SCH (10:48)
[2019-04-03] MEDS: FAMOTIDINE 20 MG TAB PO SCH ×2 (10:48→21:51)
[2019-04-03] MEDS: PARoxetine 20 MG TAB PO SCH (10:49)
[2019-04-03 13:00] VITALS: BP 130/60
[2019-04-03] MEDS ORDERED: IOHEXOL 350 MG/ML 100ML IJ ONE (15:29)
[2019-04-03] MEDS ORDERED: SODIUM CHLORIDE 0.9% 500 ML IV ONE (15:30)
--- NOTE | 2019-04-03 16:42 | NUR ---
SS consult regarding resumption of home health services. Pt resides with her daughter, Lita, and will be returning upon discharge. Pt was on service with [facility] prior to hospitalization. Per daughter, she would like for home health services to continue with [facility] upon discharge. Daughter will also provide transportation for pt to home after discharge. Addendum: 04/03/19 at 1645 by ASUNCION WEBB Amended: Links added.
--- NOTE | 2019-04-03 16:50 | NUR ---
OUT OF THE UNIT ON BED X3 FOR PROCEDURES, TOLERATED WELL, BED BATH WAS GIVEN, PROTECTIVE Z GUARD WAS APPLIED, TOTAL LINEN WAS CHANGED X4, TOLERATED WELL, C/O CONSTIPATION, DR. ZACARIAS SKELTON WAS CALLED TO BE NOTIFIED AND FOLLOW UP, PENDING MEDICATION ORDERED, WILL CONTINUE MONITORING.
[2019-04-03 16:57] VITALS: BP 133/62
[2019-04-03] MEDS: VANCOMYCIN 1GM/250ML 250 ML IV SCH (18:23)
[2019-04-03] MEDS ORDERED: POLYETHYLENE GLYCOL 17 GM PWDR PO ONE (19:45)
[2019-04-03] MEDS ORDERED: POLYETHYLENE GLYCOL 17 GM PWDR PO PRN (19:45)
[2019-04-03] MEDS ORDERED: SENNA 8.6 MG TAB PO ONE (19:45)
[2019-04-03 20:00] VITALS: BP 132/58
--- NOTE | 2019-04-03 20:02 | NUR ---
BM PATIENT HAD LARGE LOOSE BM.
--- NOTE | 2019-04-03 20:07 | NUR ---
NOT IN DISTRESS, DENIED PAIN, REPORT WAS GIVEN TO THE SAILBOAT CAPTAIN RN.
[2019-04-03 22:00] VITALS: BP 150/76
--- NOTE | 2019-04-03 22:02 | NUR ---
WOUND CARE CLEANSED BILATERAL LOWER EXTREMITIES WITH WOUND WOMENS VOLLEYBALL COACH, PATTED DRY WITH GAUZE, APPLIED THERA HONEY GAUZE, COVERED WITH ABD PAD, WRAPPED WITH KERLIX AND SECURED WITH TAPE.
[2019-04-03] MEDS: MORPHINE SULF INJ 2 MG/ML SYRINGE 1ML IV PRN (22:31)
[2019-04-03] MEDS: ONDANSETRON HCL 4 MG/2 ML VIAL IV PRN (22:31)
[2019-04-04] MEDS: HYDROcodone-ACET 5/325MG TAB PO PRN ×2 (00:09→21:06)
[2019-04-04] MEDS: CEFEPIME HYDROCHLORIDE 2 GM in SODIUM CHL 0.9% 50 ML IV SCH ×2 (02:38→18:45)
[2019-04-04 05:00] VITALS: BP 118/53
[2019-04-04 06:00] LABS: Basophils # (auto) 0 uL; Basophils % (auto) 0.6 % (0.0-2.0); Eosinophils # (auto) 0.2 uL; Hematocrit 31.9 % (36.0-46.0); Hemoglobin 10.4 g/dL (12.2-16.2); Lymphocytes # (auto) 1.2 uL; Lymphocytes % (auto) 22.7 % (10.0-50.0); Mean Corpuscular Hemoglobin 27.3 pg (28.0-32.0); Mean Corpuscular Hgb Conc. 32.6 g/dL (32.0-36.0); Mean Corpuscular Volume 83.8 fL (80.0-100.0); Monocytes # (auto) 0.4 uL; Monocytes % (auto) 8.5 % (0.0-12.0); Neutrophils # (auto) 3.3 uL; Neutrophils % (auto) 64.2 % (37.0-80.0); Platelet Count (auto) 146 10^3/uL (140-450); Red Cell Distribution Width 18.3 % (11.8-14.3); White Blood Cell 5.2 10^3/uL (4.4-10.8)
[2019-04-04] MEDS: DOCUSATE SOD 100 MG CAP PO SCH ×3 (06:00→22:00)
[2019-04-04] MEDS: GABAPENTIN 300 MG CAP PO SCH ×3 (06:22→22:18)
[2019-04-04 06:26] LABS: Calcium 9.2 mg/dL (8.5-10.1)
[2019-04-04 06:29] LABS: BUN/Creatinine Ratio 46.7
--- NOTE | 2019-04-04 07:30 | NUR ---
Opening Shift Note Assumed care of patient, awake and alert. Bed side at its lowest position, call light with in reach. No S/S of distress/SOB or pain. Instructed on POC and to call for assist PRN, will continue to monitor for changes Q1hr and PRN.
--- NOTE | 2019-04-04 07:30 | NUR ---
Opening Shift Note Assumed care of patient, awake and alert. No S/S of distress/SOB or pain. Instructed on POC and to call for assist PRN, will continue to monitor for changes Q1hr and PRN. PT ON AIR MATTRESS. CALL LIGHT ON HAND. REPORT RECEIVED FROM MARTHA FELIZ RN.
[2019-04-04 08:00] VITALS: BP 128/54
--- NOTE | 2019-04-04 08:01 | NUR ---
endorsed care to day shift nurseNoni.
--- NOTE | 2019-04-04 08:51 | NUR ---
HOLD P.T. TODAY BECAUSE OF PROCEDURE.
[2019-04-04 08:52] VITALS: BP 128/54
[2019-04-04] MEDS: cefTRIAXone 1GM/50ML D5W 50 ML IV SCH (09:31)
[2019-04-04] MEDS: FAMOTIDINE 20 MG TAB PO SCH ×2 (09:32→22:18)
[2019-04-04] MEDS: GEMFIBROZIL 600 MG TAB PO SCH (09:32)
[2019-04-04] MEDS: METOPROLOL TARTRATE 50 MG TAB PO SCH (09:32)
[2019-04-04] MEDS: PARoxetine 20 MG TAB PO SCH (09:33)
--- NOTE | 2019-04-04 10:29 | NUR ---
Patient transport to production laborer for procedure. Patient tolerated transport well, patient stable and report given to Rosi durán RN.
[2019-04-04] MEDS ORDERED: SODIUM CHLORIDE 0.9% 500 ML IV ONE (10:30)
--- NOTE | 2019-04-04 11:41 | NUR ---
Pt agreeable to morales catheter placement due to immobility, incontinence, and presence of wounds to coccyx area and back of right thigh. 16fr morales catheter placed via sterile method with clear yellow urine output. One attempt. Pt tolerated well.
[2019-04-04] MEDS ORDERED: HEPARIN IN NS 1000Units/500mL 0 ML ONE (11:55)
[2019-04-04] MEDS ORDERED: IOHEXOL 350 MG/ML 100ML IJ ONE (11:55)
[2019-04-04] MEDS ORDERED: LIDOCAINE 2%HCL (LOCAL ANESTH.) INJ 20ML MDV ONE (11:55)
--- NOTE | 2019-04-04 12:30 | NUR ---
Pt taken to room in bed. Report given to AUGUST Cheney at bedside made aware that Dr. Lynne cancelled the procedure before it began due to the contractures and inability to hold extremities in the needed position for the procedure. VS stable. pt placed in room and placed back in room O2.
--- NOTE | 2019-04-04 12:31 | NUR ---
Patient back from candlemaking laborer Patient stable, vital signs within normal limits, morales catheter in place. bed at its lowest position. Patient denies any pain or discomfort. Instructed to call nurse if needed. Will continue to monitor.
[2019-04-04] MEDS: VANCOMYCIN 1GM/250ML 250 ML IV SCH ×2 (15:09→17:52)
--- NOTE | 2019-04-04 16:10 | NUR ---
PICC line placement Patient/Patient significant other educated on need for PICC line placement. All risks and benefits explained and all questions and concerns addressed prior to procedure. Noted past medical history and allergies with no contraindications. INR and Plt counts within acceptable range. 5 fr PICC line inserted via right brachial vein using [employer] US and Tip Location System. Sterile technique with maximum barrier precautions utilized. Blood return obtained from both lumens and each flushed easily with NS using proper technique. PICC secured with Stat-lock; biodisc and occlusive dressing applied. Stat portable chest x-ray obtained for PICC tip placement. *Baseline Arm Circumference 30cm. Internal length 45cm. External length 0cm. PICC lot # [id number]. Note: Vessels were very difficult to visualize. Placed x1 attempt.
[2019-04-04] MEDS ORDERED: LIDOCAINE 1% (LOCAL ANESTH.) PF 5ml SDV ID ONE (16:15)
--- NOTE | 2019-04-04 16:37 | NUR ---
[facility] will cover Home Abx care
--- NOTE | 2019-04-04 17:24 | NUR ---
OK to use PICC line Xray completed. OK to use PICC line.
[2019-04-04 17:52] VITALS: BP 125/82
--- NOTE | 2019-04-04 18:00 | NUR ---
PT NOTES IV INFUSION RESTARTED. PICC LINE FLUSHING WELL. PT DENIES PAIN .
[2019-04-04] MEDS: MORPHINE SULF INJ 2 MG/ML SYRINGE 1ML IV PRN (18:27)
--- NOTE | 2019-04-04 18:30 | NUR ---
DR PRESCOTT AT BEDSIDE. AWARE THAT ANGIOPLASTY WAS CANCELLED. PER MD, HE'S NOT GOING TO DO ANY PROCEDURE AND WILL JUST SEE PATIENT ON OUTPATIENT FOLLOW-UP.
--- NOTE | 2019-04-04 19:30 | NUR ---
CLOSING NOTES PT RESTING IN BED. NO DISTRESS NOTED. FAMILY AT BEDSIDE. REPORT GIVEN TO NOC. MYRNA
[2019-04-04 22:00] VITALS: BP 137/67
[2019-04-04] MEDS: SODIUM CHLOR 0.9% PF (SALINE LOCK) 10ML VIAL/SYR IV SCH (22:19)
[2019-04-05] VITALS (7 sets, daily range): BP systolic 146–159; BP diastolic 66–82
[2019-04-05] MEDS: CEFEPIME HYDROCHLORIDE 2 GM in SODIUM CHL 0.9% 50 ML IV SCH ×3 (02:38→17:17)
[2019-04-05] MEDS: DOCUSATE SOD 100 MG CAP PO SCH ×3 (05:56→22:00)
[2019-04-05] MEDS: GABAPENTIN 300 MG CAP PO SCH ×3 (06:11→22:00)
--- NOTE | 2019-04-05 07:15 | NUR ---
Opening Shift Note Assumed care of patient, patient was observed laying in bed awake and alert. No S/S of distress/SOB or pain. Instructed patient on POC and to call for assist PRN, will continue to monitor for changes Q1hr and PRN.
[2019-04-05 07:44] LABS: Basophils # (auto) 0 uL; Basophils % (auto) 0.5 % (0.0-2.0); Eosinophils # (auto) 0.2 uL; Eosinophils % (auto) 4.1 % (0.0-7.0); Hematocrit 32.9 % (36.0-46.0); Hemoglobin 10.6 g/dL (12.2-16.2); Lymphocytes % (auto) 17.1 % (10.0-50.0); Mean Corpuscular Hgb Conc. 32.2 g/dL (32.0-36.0); Mean Corpuscular Volume 83.7 fL (80.0-100.0); Monocytes # (auto) 0.4 uL; Monocytes % (auto) 6.6 % (0.0-12.0); Neutrophils # (auto) 4.3 uL; Neutrophils % (auto) 71.7 % (37.0-80.0); Nucleated Red Blood Cells % 0.2 %; Platelet Count (auto) 140 10^3/uL (140-450); Red Blood Cells 3.93 10^6/uL (4.0-5.20); Red Cell Distribution Width 18.1 % (11.8-14.3)
[2019-04-05 08:02] LABS: BUN/Creatinine Ratio 33.3; Calcium 8.7 mg/dL (8.5-10.1); Magnesium 1.8 mg/dL (1.6-2.6); Potassium 3.8 mmol/L (3.5-5.1)
[2019-04-05] MEDS: PARoxetine 20 MG TAB PO SCH (09:21)
[2019-04-05] MEDS: HYDROcodone-ACET 5/325MG TAB PO PRN ×2 (09:21→22:41)
[2019-04-05] MEDS: FAMOTIDINE 20 MG TAB PO SCH ×2 (09:21→22:47)
[2019-04-05] MEDS: METOPROLOL TARTRATE 50 MG TAB PO SCH (09:22)
[2019-04-05] MEDS: GEMFIBROZIL 600 MG TAB PO SCH (09:22)
[2019-04-05] MEDS: SODIUM CHLOR 0.9% PF (SALINE LOCK) 10ML VIAL/SYR IV SCH (09:23)
[2019-04-05] MEDS: VANCOMYCIN 1GM/250ML 250 ML IV SCH (12:29)
--- NOTE | 2019-04-05 15:16 | NUR ---
Nutrition Assessment Notes Please see attached link for complete assessment Est. Needs ABW 71 [id number] kcal (17-20 kcal/kgBW r/t pt with paraplegia and obese), 71-85 gms pro (1.0-1.2 gms/kgBW d/t wounds). Will continue to monitor pertinent labs and reassess nutrient need prn Addendum: 04/05/19 at [address] Amended: Links added.
--- NOTE | 2019-04-05 15:19 | NUR ---
Called and spoke to Dr. Mclain / Podiatry as per Dr. Villatoro's request to ask the plan of care for pt, if any surgery plan, or if the pt can be d/c today. Addendum: 04/05/19 at 1521 by Cassandra Garcia RN Called and spoke to Dr. Mclain / Podiatrpalmer as per Dr. Villatoro's request to ask the plan of care for pt, if any surgery plan, or if the pt can be d/c today. As per Dr. Mclain no surgery will be done on this pt and pt can be d/c.
--- NOTE | 2019-04-05 16:17 | NUR ---
Im not signed, pt unable to sign copy placed in chart
[2019-04-05] MEDS ORDERED: MORPHINE SULF INJ 2 MG/ML SYRINGE 1ML IV PRN (18:00)
[2019-04-05] MEDS ORDERED: [UNRECOGNIZED DRUG - CODE] IV (18:10)
[2019-04-05] MEDS ORDERED: [UNRECOGNIZED DRUG - CODE] IV (18:10)
[2019-04-05] MEDS ORDERED: DOCU100C8 PO (18:10)
[2019-04-05] MEDS ORDERED: INVANZ IV (18:10)
--- NOTE | 2019-04-05 18:25 | NUR ---
I REC'D CALL FROM DR. DUMAS REGARDING DISCHARGE NEEDS. CULTURE CAME BACK RESISTANT TO ALL ANTIBIOTICS EXCEPT FOR INVANC. HE REQUESTED CASE MANAGEMENT BE CALLED TO SEE IF THIS MED COULD BE SET UP [facility] SO PT COULD GO HOME. I SPOKE TO HEAVEN AT CASE MANAGEMENT AND WAS TOLD NO ONE WOULD BE AT [facility] BUT WOULD BE TOMORROW. WE ARE TO FAX THE NEW ORDER, FACE SHEET AND CULTURE RESULTS TO [place] AT [phone]. MESSAGE LEFT WITH DR. SUE ABOUT NEED TO HOLD DISCHARGE
--- NOTE | 2019-04-05 19:18 | NUR ---
PAGED DRIER TAKE OFF TENDER TO INQUIRE ON THE PROCESS FOR THE NEW HOME ANTIBIOTIC ARRANGEMENT, AWAITING CALL BACK. FAMILY INFORMED. WILL ENDORSE REPORT TO BELLING MACHINE OPERATOR NURSE.
[2019-04-05] MEDS: ERTAPENEM SOD INJ 1 GM in SODIUM CHL 0.9% 50 ML IV SCH (19:45)
[2019-04-05] MEDS: ASCORBIC ACID 500 MG TAB PO SCH (22:48)
[2019-04-06] MEDS: CEFEPIME HYDROCHLORIDE 2 GM in SODIUM CHL 0.9% 50 ML IV SCH ×2 (02:00→09:51)
[2019-04-06 05:00] VITALS: BP 151/74
--- NOTE | 2019-04-06 05:15 | NUR ---
Opening Shift Note Assumed care of patient, awake and alert. No S/S of distress/SOB or pain. Insructed on POC and to call for assist PRN, will continue to monitor for changes Q1hr and PRN. Patient anxious regarding being discharged to home. She requested multiple times to get up out of bed to sit on her wheelchair. She also made additional request to have male staff to assist her with getting up. Patient repositioned in bed for comfort. Patient informed of the lack of Male staff to assist her with getting up. Casarez Catherter intact draining clear yellow urine.
[2019-04-06] MEDS: VANCOMYCIN 1GM/250ML 250 ML IV SCH (05:53)
--- NOTE | 2019-04-06 07:20 | NUR ---
Opening Shift Note Assumed care of patient, awake and alert. No S/S of distress/SOB or pain. Instructed on POC-ensure home health IV antibiotics is set up for patient before discharge. Patient informed to call for assist PRN, will continue to monitor for changes Q1hr and PRN.
[2019-04-06 08:30] VITALS: BP 155/80
[2019-04-06] MEDS: ERTAPENEM SOD INJ 1 GM in SODIUM CHL 0.9% 50 ML IV SCH (09:51)
[2019-04-06] MEDS: FAMOTIDINE 20 MG TAB PO SCH (09:51)
[2019-04-06] MEDS: GEMFIBROZIL 600 MG TAB PO SCH (09:51)
[2019-04-06] MEDS: ASCORBIC ACID 500 MG TAB PO SCH (09:52)
[2019-04-06] MEDS: PARoxetine 20 MG TAB PO SCH (09:53)
[2019-04-06] MEDS: METOPROLOL TARTRATE 50 MG TAB PO SCH (09:53)
[2019-04-06] MEDS: SODIUM CHLOR 0.9% PF (SALINE LOCK) 10ML VIAL/SYR IV SCH (09:54)
[2019-04-06] MEDS: HYDROcodone-ACET 5/325MG TAB PO PRN (09:54)
[2019-04-06] MEDS ORDERED: MULTIPLE VITAMIN TAB PO SCH (10:00)
--- NOTE | 2019-04-06 11:00 | NUR ---
Jb from [facility] stated that home IV antibiotics will be delivered today for the patient. Informed staff that patient will be discharged today and that patient would need Cefepime at 1800 and the Chelsy tonkeerthi.
[2019-04-06 13:34] VITALS: BP 161/73
[2019-04-06 13:51] VITALS: BP 150/80
[2019-04-06] MEDS: GABAPENTIN 300 MG CAP PO SCH (14:36)
[2019-04-06] MEDS: DOCUSATE SOD 100 MG CAP PO SCH (14:36)
--- NOTE | 2019-04-06 15:15 | NUR ---
Discharge Discharge instructions given as ordered. Encourage to follow up with Primary MD, Infectious Diseases MD, Vascular surgeon and podiatry as instructed. All questions and concerns addressed. Patient and verbalized understanding. PICC line left in place for home IV antibiotics, line is flushing well, no signs of infiltration/phlebitis. Wound pictures taken and wound dressings done on both lower extremities and on the sacral area. Home IV antibiotics have been set up with [facility]. Patient went via electric wheelchair with all personal belongings, accompanied by family member. No distress noted at time of departure.
== END 2019-04-06 15:50 | disposition home health service (06) | DRG 539 ==
LOC: ER 19:44 → OVERFLOW 04-02 02:36 → EAST 04-02 04:20
PROVIDERS: ADMIT Nurse Practitioner Family; ATTEND Internal Medicine
PROC: 02HV33Z Insertion of Infusion Device into Superior Vena Cava, Percutaneous Approach (ICD-10-PCS; principal; 2019-04-04)
DX: M86.671 Other chronic osteomyelitis, right ankle and foot (principal); G82.50 Quadriplegia, unspecified; A04.72 Enterocolitis due to Clostridium difficile, not specified as recurrent; T82.898A Other specified complication of vascular prosthetic devices, implants and grafts, initial encounter; Z16.39 Resistance to other specified antimicrobial drug; E11.621 Type 2 diabetes mellitus with foot ulcer; K59.00 Constipation, unspecified; I10 Essential (primary) hypertension; F32.89 Other specified depressive episodes; D63.8 Anemia in other chronic diseases classified elsewhere; Z86.73 Personal history of transient ischemic attack (TIA), and cerebral infarction without residual deficits; B95.62 Methicillin resistant Staphylococcus aureus infection as the cause of diseases classified elsewhere; E11.51 Type 2 diabetes mellitus with diabetic peripheral angiopathy without gangrene; E11.42 Type 2 diabetes mellitus with diabetic polyneuropathy; E11.69 Type 2 diabetes mellitus with other specified complication; E78.5 Hyperlipidemia, unspecified; I25.10 Atherosclerotic heart disease of native coronary artery without angina pectoris; I70.1 Atherosclerosis of renal artery; L97.509 Non-pressure chronic ulcer of other part of unspecified foot with unspecified severity; M81.0 Age-related osteoporosis without current pathological fracture; M41.9 Scoliosis, unspecified; Y83.2 Surgical operation with anastomosis, bypass or graft as the cause of abnormal reaction of the patient, or of later complication, without mention of misadventure at the time of the procedure; Z16.24 Resistance to multiple antibiotics; Z79.01 Long term (current) use of anticoagulants; Z81.8 Family history of other mental and behavioral disorders; Z82.3 Family history of stroke; Z82.49 Family history of ischemic heart disease and other diseases of the circulatory system; Z90.710 Acquired absence of both cervix and uterus
CPT/HCPCS: 36415; 36569; 71045; 73630; 74176; 75635; 78315; 80048; 80053; 80202; 82150; 83605; 83690; 83735; 85025; 85610; 85730; 87040; 87077; 87081; 87186; 87205; 93005; 93926; 97163; G0378; J0696; J1335; J2405

== ENCOUNTER 2021-10-18 12:28 | Inpatient (IN) | payer MEDICARE, OTHER ==
[~2021-10-18] VITALS: Ht 160 cm; Wt 74.1 kg
[~2021-10-18 12:28] MED LIST changes: +DOCU100C10 PO; +GEMF-19 PO; -GEMF600T7 PO; +INVANZ IV; -IRBE300T18; +[UNRECOGNIZED DRUG - CODE] IV; +[UNRECOGNIZED DRUG - CODE] IV
[2021-10-18] MEDS ORDERED: SODIUM CHLORIDE 0.9% 500 ML IV ONE (12:45)
[2021-10-18 16:14] LABS: Albumin 3.2 g/dL (3.4-5.0); Calcium 9.3 mg/dL (8.5-10.1)
[2021-10-18 16:19] LABS: BUN/Creatinine Ratio 41.4; Bilirubin, Total 0.3 mg/dL (0.2-1.0); Total Protein 9.3 g/dL (6.4-8.2)
[2021-10-18] MEDS ORDERED: CLINDAMYCIN 600MG IV 50 ML IV ONE (16:45)
[2021-10-18 17:14] LABS: Basophils # (auto) 0 10 ^3/uL (0-0.2); Basophils % (auto) 0.5 % (0.0-2.0); Eosinophils # (auto) 0.1 10 ^3/uL (0-0.8); Eosinophils % (auto) 1.8 % (0.0-7.0); Hematocrit 29.4 % (36.0-46.0); Hemoglobin 9.5 g/dL (12.2-16.2); Lymphocytes # (auto) 1.5 10 ^3/uL (0.4-5.4); Lymphocytes % (auto) 19.6 % (10.0-50.0); Mean Corpuscular Hemoglobin 28.1 pg (28.0-32.0); Mean Corpuscular Hgb Conc. 32.4 g/dL (32.0-36.0); Mean Corpuscular Volume 86.8 fL (80.0-100.0); Monocytes # (auto) 0.4 10 ^3/uL (0-1.3); Monocytes % (auto) 5.3 % (0.0-12.0); Neutrophils # (auto) 5.5 10 ^3/uL (1.6-8.6); Neutrophils % (auto) 72.8 % (37.0-80.0); Red Blood Cells 3.39 10^6/uL (4.0-5.20); Red Cell Distribution Width 16.6 % (11.8-14.3); White Blood Cell 7.6 10^3/uL (4.4-10.8)
[2021-10-18] MEDS ORDERED: VANCOMYCIN PER PHARMACY 0 MG IV SCH (18:15)
[2021-10-18] MEDS ORDERED: MORPHINE SULFATE INJECTION 2 MG/ML SYRG IV PRN (18:15)
[2021-10-18] MEDS ORDERED: METOCLOPRAMIDE HCL 5MG/ml INJ 2ml VIAL IV PRN (18:15)
[2021-10-18] MEDS ORDERED: ALUM & MAG HYDROX-SIMETH LIQ(MAALOX) 30 ML PO PRN (18:15)
[2021-10-18] MEDS ORDERED: DOCUSATE SOD 100 MG CAP PO PRN (18:15)
[2021-10-18] MEDS ORDERED: NITROGLYCERIN 0.4 MG SL TAB SL PRN (18:15)
[2021-10-18] MEDS ORDERED: ACETAMINOPHEN 325 MG TAB PO PRN (18:15)
[2021-10-18] MEDS ORDERED: VANCOMYCIN 1GM/250ML 250 ML IV ONE (18:45)
[2021-10-18] MEDS: HYDROcodone-ACET 5/325MG TAB PO PRN (19:02)
[2021-10-18 22:00] VITALS: BP 161/73
[2021-10-18] MEDS: PIPERACILLIN-TAZOB 3.375GM 100 ML IV SCH (22:02)
[2021-10-18] MEDS: CARVEDILOL 3.125 MG TAB PO SCH (22:02)
[2021-10-18] MEDS: SODIUM CHLOR 0.9% PF (SALINE LOCK) 10ML VIAL/SYR IV SCH (22:03)
[2021-10-18] MEDS: MORPHINE SULFATE INJECTION 2 MG/ML SYRG IV PRN (23:25)
[2021-10-19] VITALS (7 sets, daily range): BP systolic 120–138; BP diastolic 56–73
[2021-10-19] MEDS: HYDROcodone-ACET 5/325MG TAB PO PRN ×2 (02:58→16:42)
[2021-10-19 05:39] LABS: Basophils # (auto) 0 10 ^3/uL (0-0.2); Basophils % (auto) 0.5 % (0.0-2.0); Eosinophils # (auto) 0.1 10 ^3/uL (0-0.8); Eosinophils % (auto) 1.7 % (0.0-7.0); Hematocrit 29.1 % (36.0-46.0); Hemoglobin 9.2 g/dL (12.2-16.2); Lymphocytes # (auto) 1.3 10 ^3/uL (0.4-5.4); Lymphocytes % (auto) 18.7 % (10.0-50.0); Mean Corpuscular Hemoglobin 27.8 pg (28.0-32.0); Mean Corpuscular Hgb Conc. 31.7 g/dL (32.0-36.0); Mean Corpuscular Volume 87.7 fL (80.0-100.0); Monocytes # (auto) 0.4 10 ^3/uL (0-1.3); Monocytes % (auto) 5.9 % (0.0-12.0); Neutrophils # (auto) 5.3 10 ^3/uL (1.6-8.6); Neutrophils % (auto) 73.2 % (37.0-80.0); Red Blood Cells 3.32 10^6/uL (4.0-5.20); Red Cell Distribution Width 16.5 % (11.8-14.3); White Blood Cell 7.2 10^3/uL (4.4-10.8)
[2021-10-19 05:57] LABS: Albumin 2.9 g/dL (3.4-5.0); Calcium 8.7 mg/dL (8.5-10.1); Magnesium 2.9 mg/dL (1.6-2.6); Potassium 3.7 mmol/L (3.5-5.1)
[2021-10-19 06:00] LABS: BUN/Creatinine Ratio 48.1; Bilirubin, Total 0.3 mg/dL (0.2-1.0); Total Protein 7.3 g/dL (6.4-8.2)
[2021-10-19] MEDS: PIPERACILLIN-TAZOB 3.375GM 100 ML IV SCH ×3 (06:00→22:07)
[2021-10-19] MEDS: SODIUM CHLOR 0.9% PF (SALINE LOCK) 10ML VIAL/SYR IV SCH ×3 (06:08→22:06)
[2021-10-19] MEDS: MORPHINE SULFATE INJECTION 2 MG/ML SYRG IV PRN ×2 (06:43→14:06)
[2021-10-19] MEDS: CARVEDILOL 3.125 MG TAB PO SCH ×2 (09:57→22:08)
[2021-10-19] MEDS: LOSARTAN POTASSIUM 50 MG TAB PO SCH (09:58)
[2021-10-19] MEDS ORDERED: RIVAROXABAN 20 MG TAB PO ONE (16:30)
[2021-10-19] MEDS ORDERED: VANCOMYCIN 1GM/250ML 250 ML IV SCH (18:00)
[2021-10-19] MEDS ORDERED: DAKINS QUARTER STR 0.125% (NaHypochlorite) 473 ML TOPICAL SOL TOP SCH (22:00)
[2021-10-20] MEDS: MORPHINE SULFATE INJECTION 2 MG/ML SYRG IV PRN ×3 (01:01→11:31)
[2021-10-20 05:00] VITALS: BP 102/54
[2021-10-20] MEDS: PIPERACILLIN-TAZOB 3.375GM 100 ML IV SCH (06:12)
[2021-10-20] MEDS: SODIUM CHLOR 0.9% PF (SALINE LOCK) 10ML VIAL/SYR IV SCH ×2 (06:12→14:00)
[2021-10-20] MEDS: CARVEDILOL 3.125 MG TAB PO SCH (08:21)
[2021-10-20] MEDS: LOSARTAN POTASSIUM 50 MG TAB PO SCH (08:21)
[2021-10-20] MEDS: HYDROcodone-ACET 5/325MG TAB PO PRN ×2 (08:22→14:55)
[2021-10-20 09:51] VITALS: BP 136/60
[2021-10-20 13:25] VITALS: BP 142/66
[2021-10-20 14:22] VITALS: BP 113/56
[2021-10-20] MEDS ORDERED: RIVAROXABAN 20 MG TAB PO SCH (18:00)
== END 2021-10-20 16:01 | disposition home health service (06) | DRG 603 ==
LOC: ER 12:28 → OVERFLOW 18:11 → WEST WING 19:42
PROVIDERS: ADMIT Internal Medicine; ATTEND Internal Medicine
DX: L03.115 Cellulitis of right lower limb (principal); Q21.1 Atrial septal defect; M86.661 Other chronic osteomyelitis, right tibia and fibula; L03.116 Cellulitis of left lower limb; I10 Essential (primary) hypertension; G89.29 Other chronic pain; E78.5 Hyperlipidemia, unspecified; D64.9 Anemia, unspecified; I73.9 Peripheral vascular disease, unspecified; J44.9 Chronic obstructive pulmonary disease, unspecified; F32.A Depression, unspecified; Z20.822 Contact with and (suspected) exposure to COVID-19; Z99.3 Dependence on wheelchair; Z66 Do not resuscitate; Z81.8 Family history of other mental and behavioral disorders; Z82.3 Family history of stroke; Z82.49 Family history of ischemic heart disease and other diseases of the circulatory system; Z86.73 Personal history of transient ischemic attack (TIA), and cerebral infarction without residual deficits; Z90.710 Acquired absence of both cervix and uterus; Z88.4 Allergy status to anesthetic agent; Z87.891 Personal history of nicotine dependence
CPT/HCPCS: 36415; 73700; 80053; 83036; 83735; 84484; 85025; 85652; 87040; 87426; 93005; 93925; 93970; 96365; 96367; G0378; J2543; J3490

== ENCOUNTER 2022-06-13 16:57 | Inpatient (IN) | payer OTHER, MEDICAID ==
[~2022-06-13] VITALS: Ht 157.5 cm; Wt 82.0 kg
[2022-06-13] MEDS ORDERED: SODIUM CHLORIDE 0.9% 1,000 ML IV ONE ×4 (17:15)
[2022-06-13] MEDS ORDERED: cefTRIAXone 1GM/50ML D5W 50 ML IV ONE ×2 (17:15)
[2022-06-13 18:20] LABS: Basophils # (auto) 0.1 10 ^3/uL (0-0.2); Basophils % (auto) 0.6 % (0.0-2.0); Eosinophils # (auto) 0.3 10 ^3/uL (0-0.8); Hematocrit 30.2 % (36.0-46.0); Hemoglobin 9.4 g/dL (12.2-16.2); Lymphocytes # (auto) 1.9 10 ^3/uL (0.4-5.4); Lymphocytes % (auto) 15.1 % (10.0-50.0); Mean Corpuscular Hemoglobin 26.6 pg (28.0-32.0); Mean Corpuscular Volume 85.8 fL (80.0-100.0); Monocytes # (auto) 0.8 10 ^3/uL (0-1.3); Monocytes % (auto) 6.7 % (0.0-12.0); Neutrophils # (auto) 9.4 10 ^3/uL (1.6-8.6); Neutrophils % (auto) 75.6 % (37.0-80.0); Red Blood Cells 3.52 10^6/uL (4.0-5.20); Red Cell Distribution Width 16.6 % (11.8-14.3); White Blood Cell 12.5 10^3/uL (4.4-10.8)
[2022-06-13 18:35] LABS: INR 1.18 (0.9-1.15); Partial Thromboplastin Time 30.7 sec (24.6-33.4)
[2022-06-13 18:51] LABS: Albumin 2.6 g/dL (3.4-5.0); Calcium 9.3 mg/dL (8.5-10.1); Potassium 3.3 mmol/L (3.5-5.1)
[2022-06-13 18:53] LABS: BUN/Creatinine Ratio 74.8
[2022-06-13 18:56] LABS: Bilirubin, Total 0.2 mg/dL (0.2-1.0); Total Protein 7.3 g/dL (6.4-8.2)
[2022-06-13] MEDS ORDERED: ONDANSETRON HCL 4 MG/2 ML VIAL IV PRN (21:15)
[2022-06-13] MEDS ORDERED: NITROGLYCERIN 0.4 MG SL TAB SL PRN (21:15)
[2022-06-13] MEDS ORDERED: ACETAMINOPHEN 325 MG TAB PO PRN (21:15)
[2022-06-13] MEDS: SODIUM CHLORIDE 0.9% 1,000 ML IV SCH (21:50)
[2022-06-14 05:49] LABS: Urine Bacteria NONE SEEN /hpf (None Seen); Urine Blood Negative /uL (Negative); Urine Specific Gravity 1.014 (1.001-1.035); Urine WBC 1 /hpf (0 - 5)
[2022-06-14 06:01] LABS: Basophils # (auto) 0.1 10 ^3/uL (0-0.2); Basophils % (auto) 0.8 % (0.0-2.0); Eosinophils # (auto) 0.2 10 ^3/uL (0-0.8); Eosinophils % (auto) 2.4 % (0.0-7.0); Hematocrit 27.6 % (36.0-46.0); Hemoglobin 8.9 g/dL (12.2-16.2); Lymphocytes # (auto) 1.7 10 ^3/uL (0.4-5.4); Lymphocytes % (auto) 16.8 % (10.0-50.0); Mean Corpuscular Hemoglobin 27.9 pg (28.0-32.0); Mean Corpuscular Hgb Conc. 32.3 g/dL (32.0-36.0); Mean Corpuscular Volume 86.5 fL (80.0-100.0); Monocytes # (auto) 0.6 10 ^3/uL (0-1.3); Monocytes % (auto) 5.9 % (0.0-12.0); Neutrophils # (auto) 7.4 10 ^3/uL (1.6-8.6); Neutrophils % (auto) 74.1 % (37.0-80.0); Red Blood Cells 3.18 10^6/uL (4.0-5.20); Red Cell Distribution Width 16.5 % (11.8-14.3)
[2022-06-14 06:20] LABS: Albumin 2.3 g/dL (3.4-5.0); Calcium 8.9 mg/dL (8.5-10.1); Potassium 3.1 mmol/L (3.5-5.1)
[2022-06-14 06:25] LABS: BUN/Creatinine Ratio 86.4; Bilirubin, Total 0.2 mg/dL (0.2-1.0); Total Protein 6.8 g/dL (6.4-8.2)
[2022-06-14] MEDS: cefTRIAXone 1GM/50ML D5W 50 ML IV SCH (09:15)
[2022-06-14] MEDS ORDERED: PANTOPRAZOLE 40 MG TAB PO SCH (10:00)
[2022-06-14] MEDS: AZITHROMYCIN 500MG/ 250ML 250 ML IV SCH (10:03)
[2022-06-14] MEDS: SODIUM CHLORIDE 0.9% 1,000 ML IV SCH ×2 (10:41→13:13)
[2022-06-14] MEDS: POTASSIUM CHL 20MEQ/100ML 100 ML IV SCH ×2 (13:13→15:55)
[2022-06-14 14:43] VITALS: BP 117/47
[2022-06-14 15:07] VITALS: BP 117/47
[2022-06-14] MEDS ORDERED: diphenhdrAMINE HCL 50 MG/1 ML VL ONE (16:45)
[2022-06-14 16:59] VITALS: BP 117/47
[2022-06-14] MEDS: MORPHINE SULFATE INJ 2 MG/ml SYRG IV PRN (20:57)
[2022-06-14 22:53] VITALS: BP 132/52
[2022-06-15 02:43] VITALS: BP 130/54
[2022-06-15] MEDS: MORPHINE SULFATE INJ 2 MG/ml SYRG IV PRN ×2 (02:57→07:01)
[2022-06-15 05:45] LABS: Basophils # (auto) 0.1 10 ^3/uL (0-0.2); Basophils % (auto) 0.8 % (0.0-2.0); Eosinophils # (auto) 0.2 10 ^3/uL (0-0.8); Eosinophils % (auto) 2.1 % (0.0-7.0); Hematocrit 27.5 % (36.0-46.0); Hemoglobin 8.8 g/dL (12.2-16.2); Lymphocytes # (auto) 1.8 10 ^3/uL (0.4-5.4); Lymphocytes % (auto) 19.1 % (10.0-50.0); Mean Corpuscular Hemoglobin 28.2 pg (28.0-32.0); Mean Corpuscular Hgb Conc. 32.1 g/dL (32.0-36.0); Mean Corpuscular Volume 87.9 fL (80.0-100.0); Monocytes # (auto) 0.6 10 ^3/uL (0-1.3); Monocytes % (auto) 6.4 % (0.0-12.0); Neutrophils # (auto) 6.9 10 ^3/uL (1.6-8.6); Neutrophils % (auto) 71.6 % (37.0-80.0); Red Blood Cells 3.13 10^6/uL (4.0-5.20); Red Cell Distribution Width 16.9 % (11.8-14.3); White Blood Cell 9.7 10^3/uL (4.4-10.8)
[2022-06-15 05:59] LABS: BUN/Creatinine Ratio 78.4; Potassium 3.8 mmol/L (3.5-5.1)
[2022-06-15 09:00] VITALS: BP 131/48
[2022-06-15] MEDS: AZITHROMYCIN 500MG/ 250ML 250 ML IV SCH (09:25)
[2022-06-15] MEDS: cefTRIAXone 1GM/50ML D5W 50 ML IV SCH (09:25)
[2022-06-15] MEDS ORDERED: HYDR-4798 PO (10:18)
[2022-06-15] MEDS: HYDROcodone-ACET 10/325MG TAB PO PRN ×2 (10:36→18:05)
[2022-06-15] MEDS ORDERED: VANCOMYCIN PER PHARMACY 0 MG IV SCH (11:00)
[2022-06-15] MEDS ORDERED: VANCOMYCIN 1GM/250ML 250 ML IV ONE (12:00)
[2022-06-15] MEDS: SODIUM CHLORIDE 0.9% 1,000 ML IV SCH (13:15)
[2022-06-15 16:56] VITALS: BP 145/67
[2022-06-15] MEDS ORDERED: HYDROcodone-ACET 10/325MG TAB PO PRN (22:15)
[2022-06-15] MEDS ORDERED: LORazepam 2MG/ML-1ML VIAL IV PRN (22:30)
[2022-06-15 22:36] VITALS: BP 97/43
[2022-06-16] VITALS (7 sets, daily range): BP systolic 118–143; BP diastolic 35–53
[2022-06-16 05:13] LABS: Basophils # (auto) 0.1 10 ^3/uL (0-0.2); Basophils % (auto) 0.8 % (0.0-2.0); Eosinophils # (auto) 0.2 10 ^3/uL (0-0.8); Lymphocytes % (auto) 25.2 % (10.0-50.0); Red Cell Distribution Width 16.7 % (11.8-14.3)
[2022-06-16 05:15] LABS: Eosinophils % (auto) 2.6 % (0.0-7.0); Hematocrit 25.6 % (36.0-46.0); Hemoglobin 8.2 g/dL (12.2-16.2); Lymphocytes # (auto) 1.6 10 ^3/uL (0.4-5.4); Mean Corpuscular Hgb Conc. 31.9 g/dL (32.0-36.0); Mean Corpuscular Volume 87.7 fL (80.0-100.0); Monocytes # (auto) 0.5 10 ^3/uL (0-1.3); Monocytes % (auto) 7.8 % (0.0-12.0); Neutrophils # (auto) 4.2 10 ^3/uL (1.6-8.6); Neutrophils % (auto) 63.6 % (37.0-80.0); Red Blood Cells 2.92 10^6/uL (4.0-5.20); White Blood Cell 6.5 10^3/uL (4.4-10.8)
[2022-06-16 05:30] LABS: Potassium 3.7 mmol/L (3.5-5.1)
[2022-06-16 05:35] LABS: BUN/Creatinine Ratio 61.8
[2022-06-16 05:37] LABS: Cholesterol 133 mg/dL (< 200); HDL Cholesterol 35 mg/dL (40-59); LDL Cholesterol 77 mg/dL (< 100); Triglycerides 192 mg/dL (< 150)
[2022-06-16] MEDS: VANCOMYCIN 1GM/250ML 250 ML IV SCH (09:12)
[2022-06-16] MEDS: HYDROcodone-ACET 5/325MG TAB PO PRN ×3 (09:54→21:33)
[2022-06-16] MEDS ORDERED: ASPirin-EC 81 mg tab PO SCH (10:00)
[2022-06-16] MEDS: cefTRIAXone 1GM/50ML D5W 50 ML IV SCH (10:32)
[2022-06-16] MEDS ORDERED: RIVAROXABAN 10 MG TAB PO ONE (10:45)
[2022-06-16] MEDS: AZITHROMYCIN 500MG/ 250ML 250 ML IV SCH (11:49)
[2022-06-16] MEDS: ATORVASTATIN 20 MG TAB PO SCH ×2 (21:32→23:08)
[2022-06-16] MEDS: RIVAROXABAN 10 MG TAB PO SCH (21:33)
[2022-06-17] MEDS: HYDROcodone-ACET 5/325MG TAB PO PRN ×2 (01:58→08:20)
[2022-06-17] MEDS: VANCOMYCIN 1GM/250ML 250 ML IV SCH (01:58)
[2022-06-17 05:00] VITALS: BP 101/65
[2022-06-17] MEDS: SODIUM CHLORIDE 0.9% 1,000 ML IV SCH (05:44)
[2022-06-17] MEDS: cefTRIAXone 1GM/50ML D5W 50 ML IV SCH (08:17)
[2022-06-17] MEDS: RIVAROXABAN 10 MG TAB PO SCH (08:19)
[2022-06-17 09:00] VITALS: BP 156/54
[2022-06-17] MEDS ORDERED: AZITHROMYCIN 250 MG TAB PO SCH (10:00)
[2022-06-17] MEDS ORDERED: AMOX500T86 PO (10:59)
[2022-06-17 12:30] VITALS: BP 144/52
== END 2022-06-17 14:34 | disposition home health service (06) | DRG 193 ==
LOC: ER 16:57 → EDBD 16:57 → EDUNIT# 16:57 → TELE 21:15 → TELE-WESTW 06-14 14:18
PROVIDERS: ADMIT Nurse Practitioner; ATTEND Internal Medicine Pulmonary Disease
DX: J18.9 Pneumonia, unspecified organism (principal); E43 Unspecified severe protein-calorie malnutrition; G93.41 Metabolic encephalopathy; J81.0 Acute pulmonary edema; N17.9 Acute kidney failure, unspecified; G95.9 Disease of spinal cord, unspecified; G82.20 Paraplegia, unspecified; R78.81 Bacteremia; R00.1 Bradycardia, unspecified; Z68.33 Body mass index [BMI] 33.0-33.9, adult; D64.9 Anemia, unspecified; E87.6 Hypokalemia; R32 Unspecified urinary incontinence; Z66 Do not resuscitate; Z20.822 Contact with and (suspected) exposure to COVID-19; E11.9 Type 2 diabetes mellitus without complications; E78.5 Hyperlipidemia, unspecified; D69.6 Thrombocytopenia, unspecified; Z51.5 Encounter for palliative care; G89.4 Chronic pain syndrome; I10 Essential (primary) hypertension; Z87.891 Personal history of nicotine dependence; Z79.01 Long term (current) use of anticoagulants; Z79.82 Long term (current) use of aspirin; Z79.899 Other long term (current) drug therapy; Z81.8 Family history of other mental and behavioral disorders; Z82.3 Family history of stroke; Z82.49 Family history of ischemic heart disease and other diseases of the circulatory system; Z86.73 Personal history of transient ischemic attack (TIA), and cerebral infarction without residual deficits; Z90.710 Acquired absence of both cervix and uterus; Z88.8 Allergy status to other drugs, medicaments and biological substances
CPT/HCPCS: 36415; 70450; 71045; 80048; 80053; 80061; 81001; 83605; 83880; 84484; 85025; 85610; 85730; 87040; 87077; 87081; 87186; 93005; 93306; 95819; 96361; 96365; 96366; 96367; 99291; G0378; J0696; J3480

== ENCOUNTER 2022-12-14 16:29 | Emergency (ER) | payer OTHER, MEDICAID ==
[~2022-12-14 16:29] MED LIST changes: +AMOX500T86 PO; +HYDR-4798 PO; -INVANZ IV; -METO-159; -[UNRECOGNIZED DRUG - CODE] IV
== END 2022-12-14 16:49 | disposition left against medical advice (07) ==
LOC: ER 16:29
DX: S01.319A Laceration without foreign body of unspecified ear, initial encounter (principal); Z53.21 Procedure and treatment not carried out due to patient leaving prior to being seen by health care provider

== ENCOUNTER 2023-04-12 13:56 | Inpatient (IN) | payer OTHER, MEDICAID ==
[~2023-04-12] VITALS: Ht 157.5 cm; Wt 76.7 kg
[2023-04-12] MEDS ORDERED: LACTATED RINGER'S 1,000 ML IV ONE (15:30)
[2023-04-12 15:34] LABS: Urine Bacteria MANY /hpf (None Seen); Urine Blood Negative /uL (Negative); Urine Budding Yeast MODERATE /hpf (None Seen); Urine Mucus MODERATE (None Seen); Urine Specific Gravity 1.024 (1.001-1.035); Urine WBC 124 /hpf (0 - 5)
[2023-04-12 15:36] LABS: Albumin 2.6 g/dL (3.4-5.0); Calcium 8.2 mg/dL (8.5-10.1); Magnesium 2.7 mg/dL (1.6-2.6); Potassium 4.5 mmol/L (3.5-5.1)
[2023-04-12 15:40] LABS: BUN/Creatinine Ratio 25.4 (10.0-20.0); Bilirubin, Total 0.5 mg/dL (0.2-1.0); Total Protein 6.4 g/dL (6.4-8.2)
[2023-04-12 15:53] LABS: INR 1.4 (0.9-1.15); Partial Thromboplastin Time 38.3 sec (24.6-33.4)
[2023-04-12 16:33] LABS: Basophils # (auto) 0 10 ^3/uL (0-0.2); Basophils % (auto) 0.3 % (0.0-2.0); Eosinophils # (auto) 0 10 ^3/uL (0-0.8); Eosinophils % (auto) 0.2 % (0.0-7.0); Hematocrit 28.1 % (36.0-46.0); Hemoglobin 8.9 g/dL (12.2-16.2); Lymphocytes # (auto) 1.6 10 ^3/uL (0.4-5.4); Lymphocytes % (auto) 13.3 % (10.0-50.0); Mean Corpuscular Hemoglobin 28.2 pg (28.0-32.0); Mean Corpuscular Hgb Conc. 31.7 g/dL (32.0-36.0); Mean Corpuscular Volume 88.9 fL (80.0-100.0); Monocytes # (auto) 0.6 10 ^3/uL (0-1.3); Monocytes % (auto) 5.3 % (0.0-12.0); Neutrophils # (auto) 9.9 10 ^3/uL (1.6-8.6); Neutrophils % (auto) 80.9 % (37.0-80.0); Nucleated Red Blood Cells % 0.1 %; Red Blood Cells 3.16 10^6/uL (4.0-5.20); Red Cell Distribution Width 16.3 % (11.8-14.3); White Blood Cell 12.2 10^3/uL (4.4-10.8)
[2023-04-12] MEDS ORDERED: PIPERACILLIN-TAZO 4.5GM 100 ML IV ONE (17:30)
[2023-04-12] MEDS ORDERED: VANCOMYCIN 1GM/250ML 250 ML IV ONE (18:30)
[2023-04-12] MEDS ORDERED: HEPARIN DRIP/D5W 100UNITS/ML 250 ML IV SCH (19:00)
[2023-04-12] MEDS ORDERED: NITROGLYCERIN 0.4 MG SL TAB SL PRN (19:00)
[2023-04-12] MEDS ORDERED: ACETAMINOPHEN 325 MG TAB PO PRN (19:00)
[2023-04-12] MEDS ORDERED: VANCOMYCIN PER PHARMACY 0 MG IV SCH (19:00)
[2023-04-12] MEDS ORDERED: HEPARIN SODIUM (PORCINE) 5000 UNITS/ML 1ML VIAL IV ONE (19:00)
[2023-04-12] MEDS ORDERED: MORPHINE SULFATE INJ 2 MG/ml SYRG IV PRN (19:00)
[2023-04-12] MEDS ORDERED: ASPirin 325 MG TAB PO ONE (19:30)
[2023-04-12] MEDS ORDERED: ALBUTEROL SULF 2.5 MG/0.5ML(0.5%) NEB SOLN NEB PRN (19:30)
[2023-04-12] MEDS ORDERED: IPRATROPIUM BROM 0.5 MG/2.5ML INH SOL NEB PRN (19:30)
[2023-04-12 20:03] LABS: Basophils # (auto) 0 10 ^3/uL (0-0.2); Eosinophils # (auto) 0 10 ^3/uL (0-0.8); Eosinophils % (auto) 0.4 % (0.0-7.0); Monocytes # (auto) 0.6 10 ^3/uL (0-1.3); Nucleated Red Blood Cells % 0.1 %
[2023-04-12 20:05] LABS: Basophils % (auto) 0.2 % (0.0-2.0); Hematocrit 28.5 % (36.0-46.0); Hemoglobin 8.6 g/dL (12.2-16.2); Lymphocytes # (auto) 1.4 10 ^3/uL (0.4-5.4); Lymphocytes % (auto) 13.7 % (10.0-50.0); Mean Corpuscular Hgb Conc. 30.3 g/dL (32.0-36.0); Mean Corpuscular Volume 95.7 fL (80.0-100.0); Monocytes % (auto) 5.6 % (0.0-12.0); Neutrophils # (auto) 8.2 10 ^3/uL (1.6-8.6); Neutrophils % (auto) 80.1 % (37.0-80.0); Red Blood Cells 2.98 10^6/uL (4.0-5.20); White Blood Cell 10.2 10^3/uL (4.4-10.8)
[2023-04-12 20:14] LABS: Cholesterol 157 mg/dL (< 200); Triglycerides 156 mg/dL (< 150)
[2023-04-12 20:15] VITALS: BP 110/47
[2023-04-12 20:16] LABS: HDL Cholesterol 30 mg/dL (40-59); LDL Cholesterol 94 mg/dL (< 100)
[2023-04-12 20:24] LABS: INR 1.39 (0.9-1.15); Partial Thromboplastin Time 41.8 sec (24.6-33.4)
[2023-04-12] MEDS ORDERED: CEFEPIME 1GM/ 50ML 50 ML IV SCH (22:00)
[2023-04-12] MEDS: HYDROcodone-ACET 5/325MG TAB PO PRN (22:41)
[2023-04-12] MEDS: ATORVASTATIN 20 MG TAB PO SCH (22:41)
[2023-04-12] MEDS: SODIUM CHLORIDE 0.9% 1,000 ML IV SCH (23:21)
[2023-04-12] MEDS: IPRATROPIUM BROM 0.5 MG/2.5ML INH SOL NEB SCH (23:58)
[2023-04-12] MEDS: ALBUTEROL SULF 2.5 MG/0.5ML(0.5%) NEB SOLN NEB SCH (23:58)
[2023-04-13] VITALS (7 sets, daily range): BP systolic 110–168; BP diastolic 42–70
[2023-04-13] MEDS: SODIUM CHLORIDE 0.9% 1,000 ML IV SCH ×2 (05:00→15:30)
[2023-04-13] MEDS: ALBUTEROL SULF 2.5 MG/0.5ML(0.5%) NEB SOLN NEB SCH ×3 (06:28→19:46)
[2023-04-13] MEDS: IPRATROPIUM BROM 0.5 MG/2.5ML INH SOL NEB SCH ×3 (06:28→19:46)
[2023-04-13 06:29] LABS: INR 1.59 (0.9-1.15)
[2023-04-13 06:33] LABS: Basophils # (auto) 0 10 ^3/uL (0-0.2); Basophils % (auto) 0.2 % (0.0-2.0); Hemoglobin 8.3 g/dL (12.2-16.2); Neutrophils # (auto) 7.3 10 ^3/uL (1.6-8.6)
[2023-04-13 06:34] LABS: Partial Thromboplastin Time 112.8 sec (24.6-33.4)
[2023-04-13 06:39] LABS: Potassium 3.6 mmol/L (3.5-5.1)
[2023-04-13 06:41] LABS: Eosinophils # (auto) 0.2 10 ^3/uL (0-0.8); Eosinophils % (auto) 1.7 % (0.0-7.0); Hematocrit 25.2 % (36.0-46.0); Lymphocytes % (auto) 11.4 % (10.0-50.0); Mean Corpuscular Hemoglobin 28.9 pg (28.0-32.0); Mean Corpuscular Hgb Conc. 32.9 g/dL (32.0-36.0); Mean Corpuscular Volume 87.9 fL (80.0-100.0); Monocytes # (auto) 0.6 10 ^3/uL (0-1.3); Monocytes % (auto) 6.1 % (0.0-12.0); Neutrophils % (auto) 80.6 % (37.0-80.0); Nucleated Red Blood Cells % 0.1 %; Red Blood Cells 2.87 10^6/uL (4.0-5.20); White Blood Cell 9.1 10^3/uL (4.4-10.8)
[2023-04-13 06:46] LABS: Albumin 2.4 g/dL (3.4-5.0); BUN/Creatinine Ratio 35.2 (10.0-20.0); Bilirubin, Total 0.5 mg/dL (0.2-1.0); Calcium 8.5 mg/dL (8.5-10.1)
[2023-04-13] MEDS: ASPirin 81 mg TAB PO SCH (10:05)
[2023-04-13] MEDS: HYDROcodone-ACET 5/325MG TAB PO PRN ×3 (10:05→22:22)
[2023-04-13] MEDS ORDERED: cefTRIAXone 1GM/50ML D5W 50 ML IV ONE (10:30)
[2023-04-13 14:12] LABS: INR 1.42 (0.9-1.15); Partial Thromboplastin Time 52.3 sec (24.6-33.4)
[2023-04-13] MEDS ORDERED: HEPARIN DRIP/D5W 100UNITS/ML 250 ML IV SCH (14:30)
[2023-04-13] MEDS: MORPHINE SULFATE INJ 2 MG/ml SYRG IV PRN (18:19)
[2023-04-13] MEDS: VANCOMYCIN 750mg/250ml 250 ML IV SCH (20:44)
[2023-04-13] MEDS ORDERED: VANCOMYCIN 1GM/250ML 250 ML IV SCH (21:00)
[2023-04-13] MEDS: ENOXAPARIN SOD 80 MG/0.8ML SYRINGE SC SCH (22:15)
[2023-04-13] MEDS: ATORVASTATIN 20 MG TAB PO SCH (22:15)
[2023-04-14] MEDS: ALBUTEROL SULF 2.5 MG/0.5ML(0.5%) NEB SOLN NEB SCH ×5 (00:30→23:47)
[2023-04-14] MEDS: IPRATROPIUM BROM 0.5 MG/2.5ML INH SOL NEB SCH ×5 (00:30→23:47)
[2023-04-14] MEDS: MORPHINE SULFATE INJ 2 MG/ml SYRG IV PRN (02:08)
[2023-04-14] MEDS: SODIUM CHLORIDE 0.9% 1,000 ML IV SCH ×3 (04:50→22:27)
[2023-04-14 05:00] VITALS: BP 150/62
[2023-04-14] MEDS: HYDROcodone-ACET 5/325MG TAB PO PRN (05:18)
[2023-04-14 09:00] VITALS: BP 156/60
[2023-04-14] MEDS: ASPirin 81 mg TAB PO SCH (10:08)
[2023-04-14] MEDS: METHADONE HCL 10 MG TAB PO SCH (10:08)
[2023-04-14] MEDS: cefTRIAXone 1GM/50ML D5W 50 ML IV SCH (10:08)
[2023-04-14] MEDS: ENOXAPARIN SOD 80 MG/0.8ML SYRINGE SC SCH ×2 (10:08→22:12)
[2023-04-14 13:00] VITALS: BP 164/71
[2023-04-14] MEDS: HYDROmorphone HCL 2 MG/ML VL/or syr IV PRN ×3 (14:02→22:26)
[2023-04-14 17:00] VITALS: BP 111/62
[2023-04-14 22:00] VITALS: BP 153/56
[2023-04-14] MEDS: ATORVASTATIN 20 MG TAB PO SCH (22:16)
[2023-04-14] MEDS: VANCOMYCIN 750mg/250ml 250 ML IV SCH (22:16)
[2023-04-15 05:00] VITALS: BP 147/60
[2023-04-15] MEDS: HYDROmorphone HCL 2 MG/ML VL/or syr IV PRN ×4 (05:16→21:03)
[2023-04-15] MEDS: ALBUTEROL SULF 2.5 MG/0.5ML(0.5%) NEB SOLN NEB SCH ×3 (06:30→19:03)
[2023-04-15] MEDS: IPRATROPIUM BROM 0.5 MG/2.5ML INH SOL NEB SCH ×3 (06:30→19:03)
[2023-04-15 07:40] LABS: Potassium 3.2 mmol/L (3.5-5.1)
[2023-04-15 07:48] LABS: Albumin 2.4 g/dL (3.4-5.0); BUN/Creatinine Ratio 32.5 (10.0-20.0); Bilirubin, Total 0.4 mg/dL (0.2-1.0); Calcium 8.7 mg/dL (8.5-10.1); Total Protein 7.6 g/dL (6.4-8.2)
[2023-04-15 09:00] VITALS: BP 138/70
[2023-04-15] MEDS: METHADONE HCL 10 MG TAB PO SCH ×2 (09:37→22:12)
[2023-04-15] MEDS: ASPirin 81 mg TAB PO SCH (09:37)
[2023-04-15] MEDS: cefTRIAXone 1GM/50ML D5W 50 ML IV SCH (09:38)
[2023-04-15] MEDS: ENOXAPARIN SOD 80 MG/0.8ML SYRINGE SC SCH ×2 (09:40→22:13)
[2023-04-15] MEDS ORDERED: LORazepam 2MG/ML-1ML VIAL IV PRN (10:00)
[2023-04-15] MEDS ORDERED: FUROSEMIDE 40 MG/4 ML VIAL IV ONE (10:00)
[2023-04-15] MEDS: CEFEPIME 2 GM in SODIUM CHL 0.9% 50 ML IV SCH ×2 (11:09→22:12)
[2023-04-15 12:49] VITALS: BP 123/49
[2023-04-15 17:11] VITALS: BP 139/57
[2023-04-15] MEDS: VANCOMYCIN 750mg/250ml 250 ML IV SCH (21:02)
[2023-04-15 22:00] VITALS: BP 147/67
[2023-04-15] MEDS: ATORVASTATIN 20 MG TAB PO SCH (22:13)
[2023-04-16] MEDS: ALBUTEROL SULF 2.5 MG/0.5ML(0.5%) NEB SOLN NEB SCH ×4 (00:30→19:53)
[2023-04-16] MEDS: IPRATROPIUM BROM 0.5 MG/2.5ML INH SOL NEB SCH ×4 (00:30→19:53)
[2023-04-16 03:06] VITALS: BP 147/67
[2023-04-16 04:50] VITALS: BP 158/55
[2023-04-16 06:24] LABS: Basophils # (auto) 0 10 ^3/uL (0-0.2); Basophils % (auto) 0.3 % (0.0-2.0); Eosinophils # (auto) 0.2 10 ^3/uL (0-0.8); Eosinophils % (auto) 3.5 % (0.0-7.0); Hematocrit 25.7 % (36.0-46.0); Hemoglobin 8.7 g/dL (12.2-16.2); Lymphocytes # (auto) 0.8 10 ^3/uL (0.4-5.4); Lymphocytes % (auto) 14.6 % (10.0-50.0); Mean Corpuscular Hemoglobin 29.2 pg (28.0-32.0); Mean Corpuscular Volume 85.9 fL (80.0-100.0); Monocytes # (auto) 0.5 10 ^3/uL (0-1.3); Monocytes % (auto) 8.8 % (0.0-12.0); Neutrophils # (auto) 4.2 10 ^3/uL (1.6-8.6); Neutrophils % (auto) 72.8 % (37.0-80.0); Nucleated Red Blood Cells % 0.1 %; Red Blood Cells 2.99 10^6/uL (4.0-5.20); Red Cell Distribution Width 15.7 % (11.8-14.3); White Blood Cell 5.8 10^3/uL (4.4-10.8)
[2023-04-16 07:00] LABS: BUN/Creatinine Ratio 32.4 (10.0-20.0); Calcium 8.8 mg/dL (8.5-10.1); Magnesium 1.6 mg/dL (1.6-2.6)
[2023-04-16 07:26] LABS: Potassium 2.5 mmol/L (3.5-5.1)
[2023-04-16 08:00] VITALS: BP 167/60
[2023-04-16] MEDS ORDERED: POTASSIUM EFFERVESENT TAB 25 MEQ PO ONE (08:15)
[2023-04-16] MEDS ORDERED: POTASSIUM CHLORIDE 20 MEQ, LIDOCAINE 1% (LOCAL ANESTH.) 2 ML in SODIUM CHL 0.9% 100 ML IV ONE (08:15)
[2023-04-16] MEDS: HYDROmorphone HCL 2 MG/ML VL/or syr IV PRN ×2 (09:13→17:01)
[2023-04-16] MEDS: METHADONE HCL 10 MG TAB PO SCH ×2 (10:20→21:19)
[2023-04-16] MEDS: ASPirin 81 mg TAB PO SCH (10:20)
[2023-04-16] MEDS: ENOXAPARIN SOD 80 MG/0.8ML SYRINGE SC SCH ×2 (10:21→21:20)
[2023-04-16] MEDS: CEFEPIME 2 GM in SODIUM CHL 0.9% 50 ML IV SCH ×2 (10:21→23:13)
[2023-04-16 12:00] VITALS: BP 140/52
[2023-04-16 16:00] VITALS: BP 131/44
[2023-04-16] MEDS ORDERED: VANCOMYCIN 1GM/250ML 250 ML IV SCH (21:00)
[2023-04-16] MEDS: LACTULOSE 20Gm/30ML SOLN PO PRN (21:19)
[2023-04-16] MEDS: ATORVASTATIN 20 MG TAB PO SCH (21:19)
[2023-04-16 22:00] VITALS: BP 156/55
[2023-04-17] MEDS: ALBUTEROL SULF 2.5 MG/0.5ML(0.5%) NEB SOLN NEB SCH ×3 (00:38→11:44)
[2023-04-17] MEDS: IPRATROPIUM BROM 0.5 MG/2.5ML INH SOL NEB SCH ×3 (00:38→11:44)
[2023-04-17 05:00] VITALS: BP 155/64
[2023-04-17 06:11] LABS: Basophils # (auto) 0 10 ^3/uL (0-0.2); Eosinophils # (auto) 0.3 10 ^3/uL (0-0.8); Hemoglobin 8.2 g/dL (12.2-16.2); Lymphocytes # (auto) 1.2 10 ^3/uL (0.4-5.4); Mean Corpuscular Volume 88.5 fL (80.0-100.0); Monocytes # (auto) 0.4 10 ^3/uL (0-1.3); Neutrophils # (auto) 3.8 10 ^3/uL (1.6-8.6); Red Cell Distribution Width 15.7 % (11.8-14.3)
[2023-04-17 06:14] LABS: Basophils % (auto) 0.6 % (0.0-2.0); Eosinophils % (auto) 4.7 % (0.0-7.0); Hematocrit 25.3 % (36.0-46.0); Lymphocytes % (auto) 21.2 % (10.0-50.0); Mean Corpuscular Hemoglobin 28.5 pg (28.0-32.0); Mean Corpuscular Hgb Conc. 32.2 g/dL (32.0-36.0); Monocytes % (auto) 7.7 % (0.0-12.0); Neutrophils % (auto) 65.8 % (37.0-80.0); Red Blood Cells 2.86 10^6/uL (4.0-5.20); White Blood Cell 5.8 10^3/uL (4.4-10.8)
[2023-04-17 06:25] LABS: Potassium 3.2 mmol/L (3.5-5.1)
[2023-04-17 06:36] LABS: Albumin 2.2 g/dL (3.4-5.0); BUN/Creatinine Ratio 27.5 (10.0-20.0); Bilirubin, Total 0.3 mg/dL (0.2-1.0); Calcium 8.4 mg/dL (8.5-10.1); Total Protein 6.5 g/dL (6.4-8.2)
[2023-04-17 09:00] VITALS: BP 140/49
[2023-04-17] MEDS: ENOXAPARIN SOD 80 MG/0.8ML SYRINGE SC SCH (09:29)
[2023-04-17] MEDS: ASPirin 81 mg TAB PO SCH (09:30)
[2023-04-17] MEDS: CEFEPIME 2 GM in SODIUM CHL 0.9% 50 ML IV SCH (09:30)
[2023-04-17] MEDS: METHADONE HCL 10 MG TAB PO SCH ×2 (09:30→21:30)
[2023-04-17] MEDS: NICOTINE 21MG/24 HR TOPICAL PATCH TD SCH (09:31)
[2023-04-17] MEDS ORDERED: POTASSIUM EFFERVESENT TAB 25 MEQ PO ONE (11:15)
[2023-04-17 12:15] VITALS: BP 130/43
[2023-04-17] MEDS: HYDROmorphone HCL 2 MG/ML VL/or syr IV PRN (14:11)
[2023-04-17] MEDS: FLUCONAZOLE 200MG/100ML 100 ML IV SCH (14:11)
[2023-04-17 16:41] VITALS: BP 155/55
[2023-04-17] MEDS ORDERED: RIVAROXABAN 15 MG TAB PO SCH (18:00)
[2023-04-17] MEDS: ATORVASTATIN 20 MG TAB PO SCH (21:29)
[2023-04-17 22:00] VITALS: BP 153/70
[2023-04-17] MEDS ORDERED: LINEZOLID 600MG/300ML 300 ML IV SCH (22:00)
[2023-04-18] MEDS: HYDROmorphone HCL 2 MG/ML VL/or syr IV PRN (04:50)
[2023-04-18] MEDS: LACTULOSE 20Gm/30ML SOLN PO PRN (04:57)
[2023-04-18 05:00] VITALS: BP 158/51
[2023-04-18] MEDS: IPRATROPIUM BROM 0.5 MG/2.5ML INH SOL NEB SCH ×2 (06:00→13:05)
[2023-04-18] MEDS: ALBUTEROL SULF 2.5 MG/0.5ML(0.5%) NEB SOLN NEB SCH ×2 (06:00→13:05)
[2023-04-18 09:00] VITALS: BP 113/62
[2023-04-18] MEDS ORDERED: LINE1TAB6 PO (09:39)
[2023-04-18] MEDS ORDERED: FLUC200T35 PO (09:39)
[2023-04-18] MEDS: METHADONE HCL 10 MG TAB PO SCH (11:09)
[2023-04-18] MEDS: FLUCONAZOLE 200MG/100ML 100 ML IV SCH (11:10)
[2023-04-18] MEDS: NICOTINE 21MG/24 HR TOPICAL PATCH TD SCH (11:11)
[2023-04-18 11:25] VITALS: BP 113/62
[2023-04-18 13:00] VITALS: BP 151/63
== END 2023-04-18 14:30 | disposition hospice, home (50) | DRG 871 ==
LOC: EDBD 13:56 → ER 13:56 → TELE 19:23 → TELE-EAST 23:28
PROVIDERS: ADMIT Registered Nurse; ATTEND Nurse Practitioner Acute Care
DX: A41.9 Sepsis, unspecified organism (principal); I21.A1 Myocardial infarction type 2; J18.9 Pneumonia, unspecified organism; J69.0 Pneumonitis due to inhalation of food and vomit; M62.82 Rhabdomyolysis; N17.9 Acute kidney failure, unspecified; Z16.21 Resistance to vancomycin; E78.5 Hyperlipidemia, unspecified; I10 Essential (primary) hypertension; K82.8 Other specified diseases of gallbladder; N30.90 Cystitis, unspecified without hematuria; G89.4 Chronic pain syndrome; F32.A Depression, unspecified; L89.899 Pressure ulcer of other site, unspecified stage; R65.20 Severe sepsis without septic shock; Z74.01 Bed confinement status; Z79.01 Long term (current) use of anticoagulants; Z51.5 Encounter for palliative care; Z86.73 Personal history of transient ischemic attack (TIA), and cerebral infarction without residual deficits; Z90.710 Acquired absence of both cervix and uterus; Z90.89 Acquired absence of other organs; Z81.8 Family history of other mental and behavioral disorders; Z82.3 Family history of stroke; Z82.49 Family history of ischemic heart disease and other diseases of the circulatory system; Z87.440 Personal history of urinary (tract) infections; Z88.8 Allergy status to other drugs, medicaments and biological substances
CPT/HCPCS: 36415; 36600; 71045; 71250; 76705; 78582; 80048; 80053; 80061; 80202; 81001; 82550; 82565; 82805; 83036; 83605; 83735; 83880; 84443; 84484; 85025; 85379; 85610; 85730; 87040; 87077; 87086; 87088; 87186; 87205; 93005; 93306; 93970; 94640; 96361; 96365; 96366; 97163; G0378; J0696; J1450; J2001; J2543